=== PATIENT | female | born 1945 | race Caucasian/White ===

== ENCOUNTER 2017-01-12 12:25 | Emergency (ER) | payer MEDICARE ==
[~2017-01-12] VITALS: Ht 170.2 cm; Wt 79.5 kg
[2017-01-12 12:29] VITALS: BP 167/93; PULSE 99; RESP 16; O2SAT 99
[2017-01-12] MEDS ORDERED: IBUP400T22 PO (12:50)
[2017-01-12] MEDS ORDERED: B12/1TAB PO (12:50)
[2017-01-12] MEDS ORDERED: MULT1CAP33 PO (12:50)
--- NOTE | 2017-01-12 13:28 | ED.REPORT ---
HPI-GI Bleed Date of Service Jan 12, 2017 ED Provider: Dr. Erik Mckeon 71 year old female with a PMHx hemorrhoids who presents with bright red blood per rectum. She has had hemorrhoids present for 2 weeks but just started bleeding in the last week. Over the past week she has developed dizziness with standing, fatigued, rectal pain and bloody stools. She has had 2 BM per day which are bloody liquid. She has also had some bright red bleeding between BM' s. Pt denies abd pain, black/tarry stools, fevers, chills and weight loss. Nursing Notes Stated Complaint: HAD HEMORRHOIDS/ BLEEDING BUTTOCKS Chief Complaint: Female Abdominal Pain Nursing Notes Reviewed: Yes Allergies: Coded Allergies: Penicillins (Verified Allergy, Severe, Anaphylaxis, 01/12/17) aspirin (Verified Adverse Reaction, Severe, Hallucinations, 01/12/17) oxycodone (Verified Adverse Reaction, Severe, Hallucinations, 01/12/17) Miscellaneous Medications B12/Levomefolate Calcium/B-6 (Foltx Tablet) 1 Each Tablet 1 EACH PO Ibuprofen (Ibuprofen) 400 Mg Tablet 400 MG PO Multivitamin (Multivitamins) 1 Each Capsule 1 EACH PO General Time Seen by Provider: 13:27 Chief Complaint Chief Complaint: Hemorrhoid Bleeding Severity: Moderate Hx Obtained From: Patient Arrived By: Walk-in Onset Occurred: More than a week ago... (2 weeks) Symptom Duration: Since onset Location: : Rectum Severity: Current: Moderate Associated with: Reports: Rectal pain, Denies: Shortness of breath Exacerbated by: Bowel movement Past Medical History Past Medical History Hemorrhoids Past Surgical History Jaw Reports: Appendectomy, Tonsillectomy Smoking History Never Smoker Social History Alcohol Use: 1-3 per week Drug Use: Denies drug use Other Social History: Lives alone Ambulatory Status Independent Review of Systems Basic Review of Systems Eyes: Vision NL, No discharge Psychiatric: Normal thought content Constitutional: Reports: Fatigue, Denies: Chills, Fever Respiratory: Denies: Shortness of breath Cardiovascular: Denies: Chest pain GI: Reports: Diarrhea, Hematochezia, Rectal pain, Denies: Abdominal pain, Vomiting Neurologic: Reports: Dizziness, Lightheaded, Denies: Change LOC, Headache Complete sys rev & neg: except as marked. Physical Exam Initial Vital Signs Vital Signs (First) Date Time Temp Pulse Resp B/P Pulse Ox O2 Delivery O2 Flow Rate FiO2 01/12/17 12:29 36.0 99 16 167/93 99 Initial VS: Reviewed Head / Eyes: Atraumatic, Normocephalic, PERRL ENT: Mucous membranes moist, Conjunctiva normal, No scleral icterus Neck: Supple, Full range of motion Extremities: Vascular intact, Neuro intact Skin: Warm, Dry, No cyanosis Neurologic: Alert, Oriented, Nonfocal Psychiatric: Mood/affect normal, Behavior normal, Normal thought content General/Constitutional: Awake, Alert Respiratory / Chest: Breath sounds NL, Breath sounds = bilat, No respiratory distress, No rales, No rhonchi, No wheezing Cardiovascular: Heart rate NL, Regular rhythm, Heart sounds NL, No murmurs, Cap refill not delayed, Peripheral circulation NL Abdomen: Soft, Non-tender, No guarding, No rebound, BS normoactive Rectal for Blood: Positive: Blood - occult heme + Rectal exam per medical student- Normal external exam, palpable firm lumps internally. Brown stool. No obvious external hemorrhoids. Interpretation & Diagnostics Lab Results Interpretation Result Diagram: 01/12/17 1405 01/12/17 1405 Test 01/12/17 14:05 White Blood Count 7.6th/mm3 (3.8-10.1) Red Blood Count 3.73mil/mm3 (3.90-5.20) Hemoglobin 11.3g/dL (12.0-15.6) Hematocrit 33.6% (35.0-46.0) Mean Corpuscular Volume 90.1fL (81-100) Mean Corpuscular Hemoglobin 30.3pg (27.0-35.0) Mean Corpuscular Hemoglobin Concent 33.6% (32.0-37.0) Red Cell Distribution Width 12.7% (12.3-15.4) Platelet Count 369bil/L (150-400) Neutrophils (%) (Auto) 76.1% (40-74) Lymphocytes (%) (Auto) 13.5% (14-46) Monocytes (%) (Auto) 7.6% (4-12) Eosinophils (%) (Auto) 2.2% (0-5) Basophils (%) (Auto) 0.3% (0-3) Sodium Level 140mEq/L (134-144) Potassium Level 3.3mEq/L (3.5-5.2) Chloride Level 102mEq/L (97-108) Carbon Dioxide Level 20mmol/L (18-29) Blood Urea Nitrogen 15mg/dL (8-27) Creatinine 1.04mg/dL (0.57-1.00) Estimat Glomerular Filtration Rate 74mL/min (>59) Glucose Level 103mg/dL (60-99) Calcium Level 9.7mg/dL (8.5-10.1) Total Bilirubin 0.4mg/dL (0.0-1.2) Aspartate Amino Transf (AST/SGOT) 18U/L (0-50) Alanine Aminotransferase (ALT/SGPT) 8U/L (0-32) Alkaline Phosphatase 67U/L (25-165) Total Protein 7.1g/dL (6.4-8.4) Albumin 3.6g/dL (3.4-5.0) Hold Yang Top Tube Received (Received) General Lab Results Interp 1: Labs reviewed ECG Interpretation ECG Interpretation: Inferior infarct, old Time: 13:42 Interpreted by: ED physician Normal ECG Interpretation: Normal rate (79), Normal sinus rhythm Re-Eval/Medical Decision Re-Evaluation/Progress : Time of Eval: 14:43 Re-Evaluation/Progress Note: Pt updated of labs and ECG. Discussed plan for discharge and follow up. All questions addressed. Counseled Regarding: Diagnosis, Lab results, Need for follow-up, When/why to return to ED Discharge & Departure Impression: Primary Impression: Rectal bleeding Disposition: Home Discharge Condition All VS Reviewed: Yes Condition: Stable Patient Instructions: Rectal Bleeding (ED) Additional Instructions: Your workup today was reassuring. The bleeding is most likely from an internal hemorrhoid. You will need further evaluation for this problem. You also have an appointment . Return to the ER for severe dizziness, fainting or any other concerning symptoms. Referrals: Keiko Roy MD, Kieran Lazar Attestation Portions of this note were transcribed by Mayra Vergara. I, (Dr. Erik Mckeon) personally performed the history, physical exam and medical decision-making; I reviewed and confirmed the accuracy of the information in the transcribed note. Signed by: Mayra Vergara. Cady, 01/12/2017, 3836 copies to: Keiko Roy MD; Kieran Huang MD, Kirk H MD Jan 12, 2017 13:28 Mayra Vergara Jan 12, 2017 13:51 Mayra Vergara Jan 12, 2017 13:51
[2017-01-12 14:20] LABS: BASOPHILS % (AUTO) 0.3 % (0-3); EOSINOPHILS % (AUTO) 2.2 % (0-5); MONOCYTES % (AUTO) 7.6 % (4-12); Mean Corpuscular Hemoglobin 30.3 pg (27.0-35.0); Mean Corpuscular Volume 90.1 fL (81-100); NEUTROPHILS % (AUTO) 76.1 % (40-74); Platelet Count 369 bil/L (150-400)
[2017-01-18] MEDS ORDERED: ACET325T51 PO (15:55)
[2017-01-20] MEDS ORDERED: MULT-1018 PO (16:49)
[2017-01-20] MEDS ORDERED: IBUP100T7 PO (16:49)
[2017-01-20] MEDS ORDERED: MIRT15TA6 PO (16:49)
[2017-01-29] MEDS ORDERED: PROM12.510 PO (16:13)
[2017-01-29] MEDS ORDERED: ONDA-54 PO (16:13)
[2017-02-09] MEDS ORDERED: Fentanyl TOPICAL (10:26)
[2017-03-25] MEDS ORDERED: LACT-38 PO (08:37)
== END 2017-01-12 15:14 | disposition home or self-care (01) ==
LOC: SED 12:25
DX: K62.5 Hemorrhage of anus and rectum (principal); Z88.0 Allergy status to penicillin; Z88.5 Allergy status to narcotic agent; Z88.8 Allergy status to other drugs, medicaments and biological substances

== ENCOUNTER 2017-01-13 11:30 | Emergency (ER) | payer MEDICARE ==
[2017-01-13 11:30] VITALS: BP 159/62; PULSE 74; RESP 14; O2SAT 99
[~2017-01-13 11:30] MED LIST: B12/1TAB PO; IBUP400T22 PO; MULT1CAP33 PO
[2017-01-13 11:51] VITALS: BP 152/61; PULSE 73
[2017-01-13 11:52] VITALS: BP 137/62; PULSE 85
--- NOTE | 2017-01-13 12:13 | ED.REPORT ---
HPI-General Illness Date of Service Jan 13, 2017 ED Provider: Ronan Keys Miguel DO 71 year old female with a PMHx of hemorrhoids who presents to the ER via EMS due to a near syncopal episode this AM. Pt has had hemorrhoids present for 2 weeks but they just started bleeding in the last week. She has used preparation H with little relief. Over the past week she has developed dizziness with standing, fatigue, rectal pain/pressure and blood streaked stools. She has had 2 BM per day which are described as a watery brown stool. Pt's appetite has decreased due to the fact that she has a bowel movement shortly after eating and a strong urger to defecate. She has also had some bright red bleeding between BM's and bright red blood with wiping. This morning the patient went to stand, became lightheaded, weak and had black surrounding her vision. Patient was able to sit down without falling. Pt had no head injury. Pt denies abd pain , black/tarry stools, fevers, chills, weight loss, numbness and focal weakness. Nursing Notes Stated Complaint: POSSIBLE GI BLEED Chief Complaint: General Complaint Nursing Notes Reviewed: Yes Allergies: Coded Allergies: Penicillins (Verified Allergy, Severe, Anaphylaxis, 01/12/17) oxycodone (Verified Adverse Reaction, Severe, Hallucinations, 01/12/17) Miscellaneous Medications B12/Levomefolate Calcium/B-6 (Foltx Tablet) 1 Each Tablet 1 EACH PO Ibuprofen (Ibuprofen) 400 Mg Tablet 400 MG PO Multivitamin (Multivitamins) 1 Each Capsule 1 EACH PO General Time Seen by MD: 12:09 Chief Complaint Other (Near syncope) Hx Obtained From: Patient, EMS Arrived By: Ambulance Sudden in Onset?: No Onset Occurred: More than a week ago... (2 weeks) Symptom Duration: Since onset Quality: Painful (rectum), Pressure (rectum) Radiation: : Does not radiate Severity: Current: Moderate Associated with: Denies: Shortness of breath, Vomiting Exacerbated by: Standing up Past Medical History Past Medical History Hemorrhoids Past Surgical History Jaw Reports: Appendectomy, Tonsillectomy Smoking History Never Smoker Social History Alcohol Use: 1-3 per week Drug Use: Denies drug use Other Social History: Lives alone Ambulatory Status Independent Review of Systems Full Review of Systems Constitutional: Denies: Chills, Fever Eyes: Reports: Visual loss bilateral ("black at the sides of vision") Respiratory: Denies: Shortness of breath Cardiovascular: Denies: Chest pain GI: Reports: Bloody/tarry stool, Diarrhea, Hematochezia, Rectal pain, Denies: Abdominal pain, Hematemesis, Melena, Nausea, Vomiting Female: Denies: Dysuria, Flank pain Musculoskeletal: Denies: Back pain, Extremity pain Skin: Denies Diaphoresis, Denies Rash Neurologic: Reports: Lightheaded, Denies: Change LOC, Focal weakness, Numbness, Syncope Complete sys rev & neg: except as marked. Physical Exam Vital Signs Vital Signs Date Time Temp Pulse Resp B/P Pulse Ox O2 Delivery O2 Flow Rate FiO2 01/13/17 15:25 72 14 155/66 99 Room Air 01/13/17 14:25 75 16 160/65 98 Room Air 01/13/17 11:52 85 137/62 01/13/17 11:51 73 152/61 01/13/17 11:30 36.9 74 14 159/62 99 Room Air Initial VS: Reviewed General/Constitutional: Well-developed, Well-nourished Head / Eyes: Atraumatic, Normocephalic, PERRL ENT: Mucous membranes moist, Conjunctiva normal, No scleral icterus Neck: Supple, Full range of motion Respiratory: Breath sounds normal, Clear to auscultation, No respiratory distress Abdomen / GI: Soft, Non-tender, No distention Extremities: Vascular intact, Neuro intact, No swelling, No tenderness Skin: Warm, Dry, No cyanosis Neurologic: Alert, Oriented, Nonfocal Psychiatric: Mood/affect normal, Behavior normal, Normal thought content Cardiovascular: Heart rate NL, Regular rhythm Heart Sounds / Murmur: Positive: Systolic murmur present.. ( R upper sternal border /6) Interpretation & Diagnostics Lab Results Interpretation Result Diagram: 01/13/17 1330 01/13/17 1201 Test 01/13/17 12:01 01/13/17 13:30 White Blood Count 6.7th/mm3 (3.8-10.1) Red Blood Count 3.60mil/mm3 (3.90-5.20) Mean Corpuscular Volume 91.7fL (81-100) Mean Corpuscular Hemoglobin 30.0pg (27.0-35.0) Mean Corpuscular Hemoglobin Concent 32.7% (32.0-37.0) Red Cell Distribution Width 12.9% (12.3-15.4) Platelet Count 354bil/L (150-400) Neutrophils (%) (Auto) 74.0% (40-74) Lymphocytes (%) (Auto) 14.0% (14-46) Monocytes (%) (Auto) 8.3% (4-12) Eosinophils (%) (Auto) 3.3% (0-5) Basophils (%) (Auto) 0.3% (0-3) Prothrombin Time 11.2sec (8.1-12.5) Prothromb Time International Ratio 1.05ratio Hold Blue Top Tube Received (Received) Sodium Level 140mEq/L (134-144) Potassium Level 3.6mEq/L (3.5-5.2) Chloride Level 102mEq/L (97-108) Carbon Dioxide Level 18mmol/L (18-29) Blood Urea Nitrogen 14mg/dL (8-27) Creatinine 1.05mg/dL (0.57-1.00) Estimat Glomerular Filtration Rate 74mL/min (>59) Glucose Level 84mg/dL (60-99) Calcium Level 9.4mg/dL (8.5-10.1) Total Bilirubin 0.5mg/dL (0.0-1.2) Aspartate Amino Transf (AST/SGOT) 18U/L (0-50) Alanine Aminotransferase (ALT/SGPT) 6U/L (0-32) Alkaline Phosphatase 64U/L (25-165) Troponin T < 0.010ug/L (0.0-0.011) Total Protein 6.3g/dL (6.4-8.4) Albumin 3.6g/dL (3.4-5.0) Thyroid Stimulating Hormone (TSH) 3.230uIU/mL (0.450-4.500) Hold Yang Top Tube Received (Received) Hemoglobin 10.1g/dL (12.0-15.6) Hematocrit 30.1% (35.0-46.0) General Lab Results Interp 1: Labs reviewed ECG Interpretation ECG Interpretation: Inferior q waves, abnormal R wave progression Time: 12:05 Interpreted by: ED physician Normal ECG Interpretation: Normal rate (71), Normal sinus rhythm Re-Eval/Medical Decision Med Decision/Clinical Course Reportedly feeling near syncopal, her hemoglobin and hematocrit are stable, after a liter of fluid she is feeling better, no obvious life-threatening pathology is found, it seems that she does not have regular close follow-up, GI was contacted who will help to coordinate outpatient follow-up. Overall it is deemed that she is stable. Strict return and follow-up precautions are given. Time of Eval: 13:45 Re-Evaluation/Progress Note: Pt passed road test. Time of Eval: 14:45 Re-Evaluation/Progress Note: Pt has no hx contipation. 1 soft stool per day. Has not had a probem with chronic constipation. Discussed plan for discharge and follow up. All questions addressed. 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 Mineral oil then 2 fleet enemas. Counseled Regarding: Diagnosis, Lab results, Need for follow-up, When/why to return to ED Discharge & Departure Primary Impression: Syncope, near Additional Impression: Hemorrhoids Hemorrhoid type: unspecified Qualified Code: K64.9 - Unspecified hemorrhoids Disposition: Home Discharge Condition All VS Reviewed: Yes Condition: Improved Overall your workup is reassuring. Contact the GI clinic today for a follow-up appointment. Additionally stay hydrated, be sure to eat regularly. Use Preparation H suppositories up to 4 times a day. Follow-up with a primary care doctor for a full physical including further delineation of your mild murmur. Returnto the ER for recurrent episodes of passing out, severe lethargy, or other concerns. Referrals: Keiko Roy MD, Donald E MD Scribe Attestation Portions of this note were transcribed by Mayra Vergara. I, (Dr. Ronan Keys ) personally performed the history, physical exam and medical decision-making; I reviewed and confirmed the accuracy of the information in the transcribed note. Signed by: Mayra Vergara. Cady, 01/13/2017, 15:17 copies to: Keiko Roy MD; Kieran Huang MD, Timothy S DO Jan 13, 2017 12:13 Mayra Vergara Jan 13, 2017 12:54
[2017-01-13 12:22] LABS: BASOPHILS % (AUTO) 0.3 % (0-3); EOSINOPHILS % (AUTO) 3.3 % (0-5); MONOCYTES % (AUTO) 8.3 % (4-12); Mean Corpuscular Volume 91.7 fL (81-100); Platelet Count 354 bil/L (150-400)
[2017-01-13 12:44] LABS: INR 1.05 ratio
[2017-01-13] MEDS ORDERED: 0.9% Sodium Chloride 1,000 ML IV ONE (12:45)
[2017-01-13 13:17] LABS: TROPONIN T < 0.010 ug/L (0.0-0.011)
[2017-01-13 14:25] VITALS: BP 160/65; PULSE 75; RESP 16; O2SAT 98
[2017-01-13 14:32] VITALS: BP 124/58; PULSE 70; RESP 18; O2SAT 93
[2017-01-13 15:25] VITALS: BP 155/66; PULSE 72; RESP 14; O2SAT 99
[2017-01-18] MEDS ORDERED: ACET325T51 PO (15:55)
[2017-01-20] MEDS ORDERED: IBUP100T7 PO (16:49)
[2017-01-20] MEDS ORDERED: MULT-1018 PO (16:49)
[2017-01-20] MEDS ORDERED: MIRT15TA6 PO (16:49)
[2017-01-29] MEDS ORDERED: PROM12.510 PO (16:13)
[2017-01-29] MEDS ORDERED: ONDA-54 PO (16:13)
[2017-02-09] MEDS ORDERED: Fentanyl TOPICAL (10:26)
[2017-03-25] MEDS ORDERED: LACT-38 PO (08:37)
== END 2017-01-13 15:26 | disposition home or self-care (01) ==
LOC: SED 11:30
DX: R55 Syncope and collapse (principal); K64.9 Unspecified hemorrhoids; R53.83 Other fatigue; R53.1 Weakness; Z88.0 Allergy status to penicillin; Z88.5 Allergy status to narcotic agent

== ENCOUNTER 2017-01-16 12:13 | Emergency (ER) | payer MEDICARE ==
[~2017-01-16] VITALS: Ht 170.2 cm; Wt 67.7 kg
[2017-01-16 12:16] VITALS: BP 141/88; PULSE 91; RESP 14; O2SAT 100
--- NOTE | 2017-01-16 12:31 | ED.REPORT ---
HPI-General Illness Date of Service Jan 16, 2017 ED Provider: Erik Mckeon MD A 71 year old female with a history of appendectomy presents to the ED complaining of dizziness and rectal bleeding. The pt has been noticing bright red blood from her rectum for the last several weeks, which she suspects is from hemorrhoids. This is accompanied by rectal "pressure." She also admits to dizziness, nausea, chills and lightheadedness but denies vomiting, fever, chest pain, abdominal pain, dysuria, or syncope. She has been seen twice this week for similar symptoms, but the bleeding has increased over the course of the week. Her second visit was associated with an episode of near syncope. The pt was seen by GI two days ago and has a follow up appointment for colonoscopy in three weeks. She has not seen her primary care physician regularly for several years. Nursing Notes Stated Complaint: DIZZINESS Chief Complaint: General Complaint Nursing Notes Reviewed: Yes Allergies: Coded Allergies: Penicillins (Verified Allergy, Severe, Anaphylaxis, 01/12/17) oxycodone (Verified Adverse Reaction, Severe, Hallucinations, 01/12/17) Miscellaneous Medications B12/Levomefolate Calcium/B-6 (Foltx Tablet) 1 Each Tablet 1 EACH PO Ibuprofen (Ibuprofen) 400 Mg Tablet 400 MG PO Multivitamin (Multivitamins) 1 Each Capsule 1 EACH PO General Time Seen by MD: 12:30 Chief Complaint Dizziness Hx Obtained From: Patient Arrived By: Walk-in Sudden in Onset?: No Onset Occurred: More than a week ago... Symptom Duration: Since onset Recent Healthcare: No recent hospitalization, Recent doctor visit Similar Sx Previous: No Past Medical History Past Medical History Hemorrhoids Past Surgical History Jaw Reports: Appendectomy, Tonsillectomy Smoking History Never Smoker Social History Alcohol Use: 1-3 per week Drug Use: Denies drug use Other Social History: Lives alone Ambulatory Status Independent Review of Systems rectal bleeding Full Review of Systems Constitutional: Reports: Chills, Denies: Fever Cardiovascular: Denies: Chest pain GI: Reports: Nausea, Denies: Abdominal pain, Vomiting Female: Denies: Dysuria Musculoskeletal: Denies: Back pain, Neck pain Skin: Denies Rash Neurologic: Reports: Dizziness, Lightheaded, Denies: Syncope Complete sys rev & neg: except as marked. Physical Exam Vital Signs Vital Signs Date Time Temp Pulse Resp B/P Pulse Ox O2 Delivery O2 Flow Rate FiO2 01/16/17 14:30 82 13 151/85 99 Room Air 01/16/17 12:16 36.8 91 14 141/88 100 Room Air Initial VS: Reviewed General/Constitutional: Awake, Alert Head / Eyes: Atraumatic, Normocephalic, PERRL, EOMI ENT: Atraumatic, Airway patent, Mucous membranes moist Neck: Atraumatic, Supple, Full range of motion Respiratory / Chest: Atraumatic, Breath sounds NL, Breath sounds = bilat, No respiratory distress Cardiovascular: Heart rate NL, Regular rhythm, Heart sounds NL Abdomen: Atraumatic, Soft, Non-tender Back: Atraumatic, Full range of motion Upper Extremities Upper Extremity / MS: Atraumatic, Full range of motion Lower Extremity / Pelvis / MS: Atraumatic, Full range of motion Skin: Atraumatic, Color NL, No rash, Warm, Dry Rectum / Perineum: Atraumatic brown stool, guaiac positive large rectal mass Neurologic: Oriented X3, Speech NL, No motor deficits, No sensory deficits Psychiatric: Affect NL, Mood NL Interpretation & Diagnostics Lab Results Interpretation Result Diagram: 01/16/17 1308 01/16/17 1308 Test 01/16/17 13:08 White Blood Count 7.4th/mm3 (3.8-10.1) Red Blood Count 3.66mil/mm3 (3.90-5.20) Hemoglobin 11.1g/dL (12.0-15.6) Hematocrit 32.7% (35.0-46.0) Mean Corpuscular Volume 89.3fL (81-100) Mean Corpuscular Hemoglobin 30.3pg (27.0-35.0) Mean Corpuscular Hemoglobin Concent 33.9% (32.0-37.0) Red Cell Distribution Width 12.9% (12.3-15.4) Platelet Count 376bil/L (150-400) Neutrophils (%) (Auto) 73.9% (40-74) Lymphocytes (%) (Auto) 15.2% (14-46) Monocytes (%) (Auto) 8.4% (4-12) Eosinophils (%) (Auto) 2.3% (0-5) Basophils (%) (Auto) 0.1% (0-3) Sodium Level 140mEq/L (134-144) Potassium Level 3.1mEq/L (3.5-5.2) Chloride Level 101mEq/L (97-108) Carbon Dioxide Level 19mmol/L (18-29) Blood Urea Nitrogen 11mg/dL (8-27) Creatinine 0.81mg/dL (0.57-1.00) Estimat Glomerular Filtration Rate 99mL/min (>59) Glucose Level 85mg/dL (60-99) Calcium Level 9.6mg/dL (8.5-10.1) Total Bilirubin 0.6mg/dL (0.0-1.2) Aspartate Amino Transf (AST/SGOT) 19U/L (0-50) Alanine Aminotransferase (ALT/SGPT) 8U/L (0-32) Alkaline Phosphatase 67U/L (25-165) Total Protein 6.6g/dL (6.4-8.4) Albumin 3.4g/dL (3.4-5.0) Re-Eval/Medical Decision Source of Hx: Old records Time of Eval: 12:48 Patient Status: Condition improved Re-Evaluation/Progress Note: Pt rechecked, who is stable. She is informed of her rectal exam findings and need for a CT scan. Consultation : Referral / Consult Name: Dakota Dominguez MD Call Returned at: 14:37 Note: Spoke with Dr. Dominguez, oncology, regarding pt's case. Dr. Dominguez recommends chest CT and close follow up on Wednesday. Counseled Regarding: Diagnosis, Lab results, Need for follow-up, When/why to return to ED Discharge & Departure Primary Impression: Rectal mass Disposition: Home Discharge Condition All VS Reviewed: Yes Condition: Stable Additional Instructions: There is a mass of abnormal tissue in your rectum. I have made arrangements for you to be seen by my friend Dakota Dominguez MD, who is an oncologist, on January 18, at 4 PM. Please arrive at the clinic at 3 PM so that you can fill out all the paperwork that they need you to do. I recommend a mild diet and plenty of oral fluid over the next few days. Do not consult the Internet regarding this condition. This will be a source of inaccurate information and will be very difficult to know what information applies to you. Referrals: [facility] Scribe Attestation Portions of this note were transcribed by Dhruv Mendez. I, Dr. Mckeon personally performed the history, physical exam and medical decision-making; I reviewed and confirmed the accuracy of the information in the transcribed note. Signed by: Cady Davidson, 01/16/17 and 1256. copies to: [facility] Erik Mckeon MD Jan 16, 2017 12:31 DHRUV MENDEZ Jan 16, 2017 12:39
[2017-01-16] MEDS ORDERED: Iohexol 300 mg/mL 30 mL Inj PO ONE (13:00)
[2017-01-16 13:28] LABS: BASOPHILS % (AUTO) 0.1 % (0-3); EOSINOPHILS % (AUTO) 2.3 % (0-5); MONOCYTES % (AUTO) 8.4 % (4-12); Mean Corpuscular Hemoglobin 30.3 pg (27.0-35.0); Mean Corpuscular Volume 89.3 fL (81-100); NEUTROPHILS % (AUTO) 73.9 % (40-74); Platelet Count 376 bil/L (150-400)
[2017-01-16 14:30] VITALS: BP 151/85; PULSE 82; RESP 13; O2SAT 99
[2017-01-16 15:45] VITALS: BP 190/73; PULSE 94; RESP 12; O2SAT 100
[2017-01-16 16:17] VITALS: BP 165/91; PULSE 90; RESP 13; O2SAT 98
--- NOTE | 2017-01-16 16:35 | DRSVH ---
PROCEDURE: CT CHEST, ABDOMEN AND PELVIS [facility] CONTRAST ([id number]) INDICATIONS: rectal mass TECHNIQUE: After the administration of oral and intravenous contrast, 5 mm thick sections acquired from the lung apices to the symphysis. 5 mm coronal and sagittal reformats were performed, with additional 7 mm c oronal MIP reformats through the lungs. For radiation dose reduction, the following was used: autom ated exposure control, adjustment of mA and/or kV according to patient size. COMPARISON: None. FINDINGS: Image quality: Excellent. CHEST: Lungs and pleura: No acute airspace opacities. Calcified density probably granuloma in the left midl heide field. No pleural effusions or pneumothorax. Central and peripheral airways appear patent and n ormal in caliber. Mediastinum: Heart size is normal. No pericardial effusion. No mediastinal or hilar adenopathy by size criteria. Thoracic aorta and central pulmonary arteries are normal in size. Esophagus is anoop l in caliber. No hiatal hernia. Chest wall: No axillary or supraclavicular adenopathy by size criteria. Thyroid gland is within nor mal limits.. There is a 15 mm in greatest dimension density in the right breast upper-outer quadrant of unknown significance. ABDOMEN: Solid organs: Liver and spleen are normal in size and enhancement. Gallbladder multiple low-density gallstones are present in the gallbladder. The largest measures approximately 3 cm.. Biliary system is non dilated. Pancreas enhances normally. No adrenal nodules. Kidneys demonstrate normal size a nd enhancement, without hydronephrosis. Peritoneum and bowel: Until the rectosigmoid area bowel loops are considered normal. In the rectum t here is thought to be a mass that is irregular and measures approximately 4.7 x 3.4 by approximately 5.7 cm in length in the postero-left lateral aspect of the rectum. More proximal to this in the colon there is some wall irregularity and extension cannot be excluded for instance on series 2 image 90 a nd a distal sigmoid the sigmoid rectal junction. Just to the right of this area is what is thought to be a pathologic lymph node measuring 3 x 2.5 cm. In just inferior and posterior to the rectum has a structure thought to be a pathologic lymph node measuring 2.1 x 1.5 cm. Just to the right of the rect osigmoid is a questionable area of mass measuring 4.1 x 4.6 cm. Along the rostral left side of the bl adder is a 1 cm pathologic lymph node seen on series 2 image 99. There is a pathologic soft tissue ma ss probably lymph node just in the right inguinal area. Nodes and vessels: No retroperitoneal or mesenteric adenopathy by size criteria. Aorta and inferior vena cava are normal in size. Miscellaneous: No ventral hernias. PELVIS: Genitourinary: Bladder wall thickness is normal. There is a fibroid uterus present. Miscellaneous: No inguinal hernias or adenopathy. Bones: No suspicious bony lesions. Mild wedging deformity of L1 with placement of a Schmorl's node d efect superiorly in the vertebral body. T7-T6 paravertebral sclerosis is present. No vertebral body compression fractures. IMPRESSION: 1. Large mass in the rectum with mild thought to be either masslike extensions or more likely adjace nt pathologic lymph nodes in the sigmoid rectal region of the pelvis as well as the right inguinal ar ea and near the right dome of the bladder. There are abnormal lymph nodes in the region of the extra iliacs and the left internal iliac vessels. 2. No periaortic adenopathy is seen. No metastatic disease to liver or lungs Dictated by: Sriram Adams M.D. on 01/16/2017 at 16:14 Approved by: Sriram Adams M.D. on 01/16/2017 at 16:34
[2017-01-16 16:43] VITALS: BP 152/79; PULSE 88; O2SAT 97
[2017-01-18] MEDS ORDERED: ACET325T51 PO (15:55)
[2017-01-20] MEDS ORDERED: MULT-1018 PO (16:49)
[2017-01-20] MEDS ORDERED: MIRT15TA6 PO (16:49)
[2017-01-20] MEDS ORDERED: IBUP100T7 PO (16:49)
[2017-01-29] MEDS ORDERED: ONDA-54 PO (16:13)
[2017-01-29] MEDS ORDERED: PROM12.510 PO (16:13)
[2017-02-09] MEDS ORDERED: Fentanyl TOPICAL (10:26)
[2017-03-25] MEDS ORDERED: LACT-38 PO (08:37)
== END 2017-01-16 16:44 | disposition home or self-care (01) ==
LOC: SED 12:13
DX: K62.89 Other specified diseases of anus and rectum (principal); Z88.0 Allergy status to penicillin; Z88.5 Allergy status to narcotic agent
CPT/HCPCS: 36415; 71260; 74177; 80053; 82378; 85025; 99284; Q9967

== ENCOUNTER 2017-01-21 14:55 | Day surgery (SDC) | payer MEDICARE ==
[~2017-01-21] VITALS: Ht 170.2 cm; Wt 65.2 kg
[2017-01-21] VITALS (8 sets, daily range): BP systolic 143–169; BP diastolic 72–89; PULSE 75–89; RESP 15–16; O2SAT 98–100
[~2017-01-21 14:55] MED LIST changes: +ACET325T51 PO; +IBUP100T7 PO; +MIRT15TA6 PO; +MULT-1018 PO; +Vancomycin Inj 1,000 MG in IV Premix 1 EACH IV SCH
[2017-01-21] MEDS ORDERED: Propofol 10,000 mCg/mL 20 mL Inj ONE (14:56)
[2017-01-21] MEDS ORDERED: Neostigmine 1 mg/mL 10 mL Inj ONE (14:56)
[2017-01-21] MEDS ORDERED: Dexamethasone 4 mg/mL Inj ONE (14:56)
[2017-01-21] MEDS ORDERED: MetoCLOpramide 5 mg/mL 2 mL Inj ONE (14:56)
[2017-01-21] MEDS ORDERED: Ondansetron 2 mg/mL 2 mL Inj ONE (14:56)
[2017-01-21] MEDS ORDERED: Lactated Ringer's 1,000 ML IV ONE (15:37)
[2017-01-21] MEDS ORDERED: Lactated Ringer's 1,000 ML IV SCH (16:21)
[2017-01-21] MEDS ORDERED: Lactated Ringer's 500 ML IV PRN (16:21)
--- NOTE | 2017-01-21 16:21 | PCM.HPANE ---
Patient Data Surgeon Admitting Provider: Attending Provider:Chavo Roberts MD Primary Care Physician:Keiko Roy MD Other Provider:[place] Anesthesia Reason for Visit Anal Rectal Neoplasm Ht/WT & BMI Height (Feet): 5 Height (Inches): 7 Weight (Kilograms): 65.2 Body Mass Index 22.00 Allergies Coded Allergies: Penicillins (Verified Allergy, Severe, Anaphylaxis, 01/12/17) oxycodone (Verified Adverse Reaction, Severe, Hallucinations, 01/12/17) Past Anesthesia History Anesthesia History: Denies:: Abnormal Airway, Anesthesia Reactions, Difficult Intubation, Fam Anesthesia Reaction Diabetes History Hx Diabetes?: No MRSA MRSA: No Medications Home Meds Incl Beta Walter: No Reported Medications Mirtazapine 15 Mg [id number] Mg PO HS Ref 0 01/20/17 Multivitamin (Multi Vitamin Daily)1 Each Tablet1 Each PO DAILY 30 Days Ref 0 01/20/17 Ibuprofen 100 Mg [id number] Mg PO QID PRN For Pain Ref 0 01/20/17 Acetaminophen 325 Mg [id number] Mg PO Q4H PRN For Fever Ref 0 01/18/17 Discontinued Reported Medications Ibuprofen 400 Mg [id number] Mg PO For Pain Ref 0 01/12/17 B12/Levomefolate Calcium/B-6 (Foltx Tablet)1 Each Tablet1 Each PO 01/12/17 Multivitamin (Multivitamins)1 Each Capsule1 Each PO 01/12/17 History History of ENT Problems?: Yes HEENT History: Denies:: Abnormal Airway Cataracts Difficult Intubation Dysphagia Glaucoma Hearing Problem Sinus Problem TMJ Denture Type: Full- Upper Hx of Heart Problems?: Yes Cardiovascular History: Positive for:: Heart Murmur (from rheumatic fever as child, heard occasionally) Rheumatic Fever (as child) Denies:: Abdominal Aortic Aneurism Atrial Fibrillation Cardiac Surgery Chest Pain Congestive Heart Failure Hypertension Hx of Respiratory Problem?: No Respiratory History: Denies:: Asthma COPD Emphysema Oxygen Administration Pneumonia Tuberculosis Use of C-PAP Machine Use of Inhalers / NEBS Hx Neurologic Problems?: No Neurological History: Denies:: Alzheimer's Disease CVA Dementia Dizziness Headaches Multiple Sclerosis Parkinson's Disease Seizures TIA Hx of GI Problems?: Yes Gastrointestinal History: Positive for:: Gall Bladder Disease (gallstones on CT- asymptomatic) Rectal Bleeding (rectal neoplasm current admission problem) Denies:: Gastroesphageal Reflux Gastrointestinal Bleeding Heartburn Hepatitis Hiatal Hernia Liver Disease Hx of Problems?: No Genitourinary History: Denies:: Kidney Stones Urinary Tract Infection Female Hx: Denies:: Currently Problems with Breasts? Skin History: Denies:: History Skin Disorders? Pressure Ulcers Hx Musculoskeletal Problems?: Yes Musculoskeletal History: Positive for:: Osteoarthritis (hands ) Denies:: Back Injury Fibromyalgia Joint Replacement Myasthenia Gravis Rheumatoid Arthritis Hx of Psycho/Social Problems?: No Psycho Social History: Denies:: Anxiety Hx Depression Hx Surgeries?: Yes (tonsils, appe, maxillo facial correction (bite correction)) Hx Any Other Health Problems?: Yes Other History: Positive for:: Cancer (rectal ) Denies:: Thyroid Disease History Blood Transfusions: Positive for:: Accept Blood Products? Blood Transfusions (probably at time of maxillo facial surgery as teenager) Hx Diabetes: No Hx Alcohol Use: YesAlcoholic Drinks Per Day: one to two drinks weekly, none recentlyHx Substance Use: No Smoking Status: Never Smoker Have You Smoked inLast 12 mo: No Stop/Bang Treated for Sleep Apnea?: No Do You Have a CPAP Machine?: No P-Blood Pressure: treated: No B- Body Mass Index > 35 kg/m2: No A- Age over 50: Yes N- Neck Large Circumference: No G- Gender Male: No SHARIF Risk Assessment: Low Risk, <3 Yes Risk Assessment Category Category 1A: Patient has history of documented sleep apnea, and HAS NOT received any narcotic, sedative or anesthesia administration during this stay. Category 1B: Patient has history of documented sleep apnea, and HAS received any narcotic , sedative or anesthesia administration during this stay Category 2: Patient has SUSPECTED Obstructive Sleep Apnea, and HAS received any narcotic , sedative or anesthesia administration during this stay. Category 3: Patient has SUSPECTED Obstructive Sleep Apnea and HAS NOT received narcotic, sedative or anesthesia administration during this stay. Category 4: Outpatient in Procedural Areas with known sleep apnea or who screen positive for High Risk via the STOP/BANG questionnaire. Exam Exam Vital Signs Vital Signs Date Time Temp Pulse Resp B/P Pulse Ox O2 Delivery O2 Flow Rate FiO2 01/21/17 15:40 36.9 88 16 154/89 99 Room Air General Appearance: Oriented X3 HEENT/AIRWAY: MP 2 Lungs: Normal Air Movement Heart: Regular Rate/Rhythm Meds/Labs/Diagnostics Admission Meds Current Medications Lactated Ringer's (Lr) 1,000 ml @ ud STK-MED ONCE IV Last administered on 01/21t 15:37; Start 01/21/17 at 15:37; Stop 01/21/17 at 15:38; Status DC Plan Impression Patient chart reviewed, patient interviewed and anesthestic plan with risks, benefits, and alternatives discussed, and informed consent obtained. NPO Status: MIDNIGHT ASA Physical Status: ASA2 Mod Systemic Disease Anesthetic Plan: GA Bene/Risks/Altern/Consents: Yes HP Complete Prior to Induction: Yes Carlos Higuera MD Jan 21, 2017 16:21
[2017-01-21] MEDS ORDERED: EPHEDrine Sulfate 50 mg/mL Inj IVPUSH PRN (16:25)
[2017-01-21] MEDS ORDERED: Dexamethasone 4 mg/mL Inj IVPUSH PRN (16:25)
[2017-01-21] MEDS ORDERED: MetoCLOpramide 5 mg/mL 2 mL Inj IVPUSH PRN (16:25)
[2017-01-21] MEDS ORDERED: fentaNYL-PF 50 mCg/mL 2 mL Inj IVPUSH PRN (16:25)
[2017-01-21] MEDS ORDERED: Ondansetron 2 mg/mL 2 mL Inj IVPUSH PRN (16:25)
[2017-01-21] MEDS ORDERED: Phenylephrine 10,000 mCg/mL Inj IVPUSH PRN (16:25)
[2017-01-21] MEDS ORDERED: Vancomycin 1,000mg/200 mL NS IV ONE (16:50)
[2017-01-21] MEDS ORDERED: metroNIDAZOLE 500 mg/100 mL NS Premix IV ONE (16:50)
[2017-01-21] MEDS ORDERED: Sodium Chloride Bacteriostatic 30 mL Inj IVFLUSH ONE (17:09)
[2017-01-21] MEDS ORDERED: Bupivacaine-MPF 0.25% 30 mL Inj INFILTRATE ONE (17:09)
[2017-01-21] MEDS ORDERED: HepLOK Flush 100 unit/mL 5 mL Inj IVFLUSH ONE (17:09)
--- NOTE | 2017-01-21 18:20 | DRSVH ---
PROCEDURE: X-RAY CHEST ONE VIEW, PORTABLE ([id number]) INDICATIONS: port TECHNIQUE: One view of the chest was acquired. COMPARISON: None. FINDINGS: Surgical changes and devices: Left chest port with the tip projecting in the upper SVC Lungs and pleura: No pleural effusions or pneumothorax. Lungs are clear. Mediastinum: Mediastinal contours appear normal. Heart size is normal. Bones and chest wall: No suspicious bony lesions. Overlying soft tissues appear unremarkable. Late ral curvature of the spine IMPRESSION: Left chest port with tip projecting in the upper SVC. No pneumothorax. Dictated by: Arsh Das M.D. on 01/21/2017 at 18:17 Approved by: Arsh Das M.D. on 01/21/2017 at 18:18
--- NOTE | 2017-01-22 02:39 | OP ---
[address] [address] OPERATIVE REPORT PATIENT: SELENA DELEON : 1945 MR#: [id number] ADMIT: 01/21/2017 JOB ID: [id number] DATE OF SURGERY: 01/21/2017 ANESTHESIA: General. PREOPERATIVE DIAGNOSIS(ES): Anorectal malignancy. POSTOPERATIVE DIAGNOSIS(ES): Anorectal malignancy. OPERATIVE PROCEDURE: 1. Port placement using fluoroscopy with interpretation. 2. Rigid proctosigmoidoscopy with biopsy of anorectal mass. SURGEON: Chavo Roberts MD. THERAPEUTIC MASSAGE TECHNICIAN: None. COMPLICATIONS: None. ESTIMATED BLOOD LOSS: Minimal. CONDITION: Satisfactory. SPECIMEN: Anorectal mass biopsy. FINDINGS: Inspection of the anus and vagina demonstrated a large firm mass involving the posterior aspect of the vagina/anterior right aspect of the rectum. This mass extends all the way up to 9 cm from the verge. It seemed that, during the examination, mucin was draining from the mass. INDICATION/SIGNIFICANT HISTORY: The patient is a 71-year-old female who recently presented multiple times with complaint of rectal bleeding. Eventually, a CT scan was performed and digital rectal exam also performed, both demonstrating a large mass in the rectum. She was referred to me, as well as Oncology. Given the questionable malignant nature of this the oncologist requested a Port-A-Cath, as well as tissue biopsy to be performed in the OR. OPERATIVE TECHNIQUE: The patient was taken to the operating room and placed in supine position. General anesthesia was administered and preoperative antibiotics given. The neck and chest were prepped and draped in standard surgical fashion. A procedure pause was performed. The left subclavian vein was accessed with the first pass of the finder needle. A wire was inserted in the vein and position confirmed with fluoroscopy. The wire was seen to course through the heart into the inferior vena cava, confirming it was in the venous system. Local anesthetic was injected and a subcutaneous pocket was created in the left anterior chest. Low-profile Port-A-Cath was secured in place using three 2-0 PDS sutures. The catheter was tunneled up to the wire exit point and inserted into the vein using the Seldinger technique under fluoroscopic visualization. Good final position was confirmed. The port aspirated and flushed nicely. This was locked with heparin. The skin was then closed using 3-0 Vicryl deep dermal, followed by running 4-0 Monocryl. Dermabond was applied. The patient was then placed in lithotomy position. I began with a digital rectal exam. The mass is easily palpable within 1 cm of the anal verge at the anterior and right anterior aspects. Upon bimanual exam, the mass was also easily palpable in the posterior vagina as high as I could palpate. I inspected these using the speculum and could see the mass in the vagina. I then inserted a speculum into the anus. There was a fungating component to the mass and tissue was taken from this and sent for biopsy. I then inserted the rigid proctoscope beyond the mass and slowly withdrew it until I encountered friable tissue. This was at 9 cm. This was then withdrawn and the case concluded. SHAROND
--- NOTE | 2017-01-22 08:40 | DRSVH ---
PROCEDURE: X-RAY SUGICAL FLUORO-VENOUS ACCESS INDICATIONS: . COMPARISON: [facility], CR, XR CHEST 1VW (PORTABLE), 01/21/2017, 17:55. FINDINGS: Exam is limited to to submitted images which demonstrate placement of a left subclavian ch est port with tube tip projected over the mid superior vena cava IMPRESSION: Placement of left subclavian chest port with tube tip projected over the mid superior phan a cava. Dictated by: Fortunato SAUCEDO Interpreted: Makeda Wallace MD on 01/22/2017 at 8:38 Transcribed by: KAYCEE on 01/22/2017 at 8:40 Approved by: Makeda Wallace M.D. on 01/22/2017 at 15:46
--- NOTE | 2017-01-22 17:14 | PATH ---
SURGICAL PATHOLOGY Attending Physician:Chavo Roberts MD CASE STATUS: Signed Out PATIENT NAME: SELENA DELEON PID: [id number] : 1945 DATE COLLECTED:01/21/2017 23:41 SPECIMEN: Anus, Biopsy CLINICAL HISTORY: ANAL RECTAL MASS 1). ANAL RECTAL MASS FINAL DIAGNOSIS: 1.ANAL RECTAL MASS, BIOPSIES: MULTIPLE FRAGMENTS OF TUBULOVILLOUS ADENOMA. NO EVIDENCE OF MALIGNANCY OR HIGH-GRADE DYSPLASIA. ICD10 CODE D12.8 GROSS DESCRIPTION: Received in formalin, labeled with the patient' s name and "anal-rectal mass", is a collection of spongy, hardy-pink tissue fragments measuring 1.5 x 1.0 x 0.4 cm in aggregate. All fragments are totally submitted in one cassette. ([id number]) MICRO DESCRIPTION: See diagnosis. ICD-9 CODES: CPT CODES: 1: 62251 Electronically Signed Out Venus Farr MD [facility] Pathology [facility] [address], [place] [address] Technical component performed at [facility], [facility] [address], [place], [address]
[2017-01-29] MEDS ORDERED: ONDA-54 PO (16:13)
[2017-01-29] MEDS ORDERED: PROM12.510 PO (16:13)
[2017-02-09] MEDS ORDERED: Fentanyl TOPICAL (10:26)
[2017-03-25] MEDS ORDERED: LACT-38 PO (08:37)
== END 2017-01-21 23:59 | disposition home or self-care (01) ==
LOC: SAS 14:55
PROVIDERS: ATTEND General Practice
DX: D12.8 Benign neoplasm of rectum (principal); R15.9 Full incontinence of feces; R63.4 Abnormal weight loss; Z87.891 Personal history of nicotine dependence
CPT/HCPCS: 36561; 45305; 71010; 77001; C1788; J1100; J1642; J2250; J2405; J2710; J2765; J3370; J3490; J7120

== ENCOUNTER 2017-01-26 09:23 | Day surgery (SDC) | payer MEDICARE ==
[~2017-01-26] VITALS: Ht 170.2 cm; Wt 64.6 kg
[2017-01-26] VITALS (7 sets, daily range): BP systolic 152–163; BP diastolic 76–86; PULSE 71–90; RESP 9–16; O2SAT 98–100
--- NOTE | 2017-01-26 06:41 | PCM.HPANE ---
Patient Data Surgeon Admitting Provider: Attending Provider:Chavo Roberts MD Primary Care Physician:Keiko Roy MD Other Provider:[facility] Anest[facility] Reason for Visit Rectal Mass Ht/WT & BMI Height (Feet): 5 Height (Inches): 7 Weight (Kilograms): 65.2 Body Mass Index 22.00 Allergies Coded Allergies: Penicillins (Verified Allergy, Severe, Anaphylaxis, 01/25/17) oxycodone (Verified Adverse Reaction, Severe, Hallucinations, 01/25/17) Past Anesthesia History Anesthesia History: Denies:: Abnormal Airway (S/P MAXILLO-FACIAL (JAW) RPR), Anesthesia Reactions, Difficult Intubation, Fam Anesthesia Reaction, Fam Malignant Hypertherm, Malignant Hyperthermia Diabetes History Hx Diabetes?: No MRSA MRSA: No Medications Reported Medications Mirtazapine 15 Mg Olubfh86 Mg PO HS Ref 0 01/26/17 Multivitamin (Multi Vitamin Daily)1 Each Tablet1 Each PO DAILY 30 Days Ref 0 01/20/17 Ibuprofen 100 Mg Tnpnnj016 Mg PO QID PRN For Pain Ref 0 01/20/17 Acetaminophen 325 Mg Vtqehe446 Mg PO Q4H PRN For Fever Ref 0 01/18/17 Discontinued Reported Medications Mirtazapine 15 Mg Vgmvut35 Mg PO HS Ref 0 01/20/17 History History of ENT Problems?: Yes HEENT History: Denies:: Abnormal Airway (S/P MAXILLO-FACIAL (JAW) RPR) Cataracts Difficult Intubation Dysphagia Hearing Problem Sinus Problem TMJ Other HEENT Pertinent History: S/P TONSILLECTOMY Hx of Heart Problems?: Yes Cardiovascular History: Positive for:: Heart Murmur (from rheumatic fever as child, heard occasionally) Rheumatic Fever (as child) Denies:: Abdominal Aortic Aneurism Atrial Fibrillation Cardiac Surgery Chest Pain Congestive Heart Failure Hypertension Irregular Heartbeat (SYNCOPE 01/21/2017) Hx of Respiratory Problem?: Yes Respiratory History: Positive for:: Pneumonia (HX PNEUMONIA & BRONCHITIS) Denies:: Asthma COPD Emphysema Oxygen Administration Tuberculosis Use of C-PAP Machine Hx Neurologic Problems?: No Neurological History: Positive for:: Dizziness (SYNCOPE 01/21/2017) Denies:: Alzheimer's Disease CVA Dementia Headaches Multiple Sclerosis Parkinson's Disease Seizures Hx of GI Problems?: Yes Gastrointestinal History: Positive for:: Gall Bladder Disease (STONES SEEN ON CT-ASYMPTOMATIC) Rectal Bleeding (HX HEMORRHOIDS RECTAL MASS (CA)=CURRENT PPROBLEM) Denies:: Gastroesphageal Reflux Gastrointestinal Bleeding Heartburn Hepatitis Hiatal Hernia Other GI Pertinent History: S/P APPY,PORTACATH Hx of Problems?: No Genitourinary History: Denies:: Kidney Stones Urinary Tract Infection Female Hx: Denies:: Currently Problems with Breasts? Skin History: Denies:: History Skin Disorders? Pressure Ulcers Hx Musculoskeletal Problems?: Yes Musculoskeletal History: Positive for:: Osteoarthritis Denies:: Back Injury Joint Replacement Hx of Psycho/Social Problems?: No Psycho Social History: Denies:: Anxiety Hx Depression Hx Surgeries?: Yes (tonsils, appe, maxillo facial correction (bite correction), PORT) Hx Any Other Health Problems?: Yes Other History: Positive for:: Cancer (rectal ) Denies:: Endocrine Disease Hospitalization Thyroid Disease History Blood Transfusions: Positive for:: Blood Transfusions (probably at time of maxillo facial surgery as teenager) Hx Diabetes: No Hx Alcohol Use: YesAlcoholic Drinks Per Day: 1-3/WEEKHx Substance Use: No Smoking Status: Never Smoker Have You Smoked inLast 12 mo: No Stop/Bang S-Snoring: Do You Snore Loudly: No T-Tired: feel tired, fatigued: No O-Obsered: Observed not breath: No P-Blood Pressure: treated: No B- Body Mass Index > 35 kg/m2: No A- Age over 50: Yes N- Neck Large Circumference: No G- Gender Male: No SHARIF Total Score: 1 SHARIF Risk Assessment: Low Risk, <3 Yes Risk Assessment Category Category 1A: Patient has history of documented sleep apnea, and HAS NOT received any narcotic, sedative or anesthesia administration during this stay. Category 1B: Patient has history of documented sleep apnea, and HAS received any narcotic , sedative or anesthesia administration during this stay Category 2: Patient has SUSPECTED Obstructive Sleep Apnea, and HAS received any narcotic , sedative or anesthesia administration during this stay. Category 3: Patient has SUSPECTED Obstructive Sleep Apnea and HAS NOT received narcotic, sedative or anesthesia administration during this stay. Category 4: Outpatient in Procedural Areas with known sleep apnea or who screen positive for High Risk via the STOP/BANG questionnaire. Exam Exam General Appearance: Alert, Oriented X3, Cooperative, No Acute Distress HEENT/AIRWAY: MP 2 Lungs: Clear to Auscultation, Normal Air Movement Heart: Exam Unremarkable, Regular Rate/Rhythm, No Murmurs/Rubs/Gallops Plan Impression Patient chart reviewed, patient interviewed and anesthestic plan with risks, benefits, and alternatives discussed, and informed consent obtained. NPO Status: MIDNIGHT ASA Physical Status: ASA2 Mod Systemic Disease Anesthetic Plan: GA Bene/Risks/Altern/Consents: Yes HP Complete Prior to Induction: Yes Kylah Canela MD Jan 26, 2017 06:41
[~2017-01-26 09:23] MED LIST changes: -B12/1TAB PO; -IBUP400T22 PO; -MIRT15TA6 PO; -MULT1CAP33 PO; -Vancomycin Inj 1,000 MG in IV Premix 1 EACH IV SCH
[2017-01-26] MEDS ORDERED: Dexamethasone 4 mg/mL Inj ONE (09:24)
[2017-01-26] MEDS ORDERED: fentaNYL-PF 50 mCg/mL 2 mL Inj ONE (09:24)
[2017-01-26] MEDS ORDERED: metroNIDAZOLE 500 mg/100 mL NS Premix IV ONE (10:45)
[2017-01-26] MEDS ORDERED: Vancomycin 1,000mg/200 mL NS IV ONE (10:55)
[2017-01-26] MEDS ORDERED: Lactated Ringer's 1,000 ML IV ONE (11:00)
[2017-01-26] MEDS: Vancomycin Inj 1,000 MG in IV Premix 1 EACH IV SCH (11:05)
[2017-01-26] MEDS ORDERED: MIRT15TA6 PO (11:12)
[2017-01-26] MEDS ORDERED: Lactated Ringer's 1,000 ML IV SCH (11:26)
[2017-01-26] MEDS ORDERED: Lactated Ringer's 500 ML IV PRN (11:26)
[2017-01-26] MEDS ORDERED: MetoCLOpramide 5 mg/mL 2 mL Inj IVPUSH PRN (11:30)
[2017-01-26] MEDS ORDERED: Dexamethasone 4 mg/mL Inj IVPUSH PRN (11:30)
[2017-01-26] MEDS ORDERED: Phenylephrine 10,000 mCg/mL Inj IVPUSH PRN (11:30)
[2017-01-26] MEDS ORDERED: fentaNYL-PF 50 mCg/mL 2 mL Inj IVPUSH PRN (11:30)
[2017-01-26] MEDS ORDERED: Labetalol 5 mg/mL 4 mL Inj IV PRN (11:30)
[2017-01-26] MEDS ORDERED: Ondansetron 2 mg/mL 2 mL Inj IVPUSH PRN (11:30)
[2017-01-26] MEDS ORDERED: Atropine 0.4 mg/mL Inj IVPUSH PRN (11:30)
[2017-01-26] MEDS ORDERED: HYDROmorphone 1 mg/mL Inj IVPUSH PRN (11:30)
[2017-01-26] MEDS ORDERED: EPHEDrine Sulfate 50 mg/mL Inj IVPUSH PRN (11:30)
--- NOTE | 2017-01-26 13:30 | PCM.ANEP1 ---
Post Anesthesia Phase 1 PACU Phase 1 Assessment Vital Signs Vital Signs Date Time Temp Pulse Resp B/P Pulse Ox O2 Delivery O2 Flow Rate FiO2 01/26/17 12:35 37.1 74 11 152/76 98 Room Air 01/26/17 12:30 73 11 157/77 100 Simple Mask 10 01/26/17 12:26 71 13 163/83 100 Simple Mask 10 01/26/17 12:19 71 11 161/79 100 Simple Mask 10 01/26/17 12:16 72 9 156/83 100 Simple Mask 10 01/26/17 12:10 36.7 71 11 157/82 100 Simple Mask 10 01/26/17 11:11 36.8 90 16 152/86 99 Room Air Anesthetic Administered: GA Level of Alertness: Awake, talking GUTHRIE's with Equal Strength: Yes Pain: No Nausea or Vomiting: No Oxygen Delivery: Simple Mask Lungs: Clear to Auscultation, Normal Air Movement Complications: No Kylah Canela MD Jan 26, 2017 13:30
--- NOTE | 2017-01-26 15:05 | OP ---
[address] [address] OPERATIVE REPORT PATIENT: SELENA DELEON : 1945 MR#: [id number] ADMIT: 01/26/2017 JOB ID: [id number] DATE OF SURGERY: 01/26/2017 ANESTHESIA: General. PREOPERATIVE DIAGNOSIS(ES): Anorectal mass. POSTOPERATIVE DIAGNOSIS(ES): Anorectal mass. OPERATIVE PROCEDURE: 1. Exam under anesthesia. 2. Vaginal wall biopsy. 3. Rectal mass biopsy. 4. Transanal debulking of anorectal mass. SURGEON: Chavo Roberts MD. INDUSTRIAL SWEEPER CLEANER: None. COMPLICATIONS: None. ESTIMATED BLOOD LOSS: Less than 5 mL. CONDITION: Satisfactory. SPECIMEN: 1. Vaginal wall core needle biopsy. 2. Rectal mucus. 3. Rectal mass. 4. Core needle biopsy of rectal mass. COMPLICATIONS: None. FINDINGS: As noted before, there is a large, fungating tumor in the rectal canal. Associated with this is a very firm mass with involvement of the posterior vaginal wall. INDICATIONS/SIGNIFICANT HISTORY: The patient is a 71-year-old female, who was recently referred to me for a newly noted anorectal mass after she presented a number of times to the emergency department with symptoms of pelvic pressure. I took her to the operating room last week and performed exam under anesthesia and biopsied a large, fungating component of the mass. 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 I therefore elected to bring her back at this time to perform more extensive biopsies. At the operation last week, there was a lot of mucus that was decompressed from the rectum. Subsequently, she had a lot of symptomatic improvement, which has slowly abated over the past few days. OPERATIVE TECHNIQUE: The patient was taken to the operating room and placed in a supine position. General anesthesia was administered. Perioperative antibiotics given. She was placed in lithotomy. Perineum was prepped and draped in a standard surgical fashion. A procedure pause performed. I began by examining the vagina. Speculum was inserted and the posterior wall palpated. As before, there was a firm, mass-like component of the posterior wall. I took a 14-gauge core needle biopsy of this. There was a good core obtained. This was sent for permanent specimen. I then put the speculum into her anus. As before, a lot of mucus was decompressed. I collected some of this and also sent this for cytologic analysis. The fungating part of the tumor was very friable and bleeding. Components of this came off in my fingers. There was a large component that then prolapsed. I elected to just debulk this using a LigaSure device, both to obtain a good amount of tissue but also to hopefully provide some symptomatic relief. I then was able to palpate the firmer component of this mass involving the anterior rectal wall. Using my finger, I guided the 14-gauge core needle up there and obtained four cores. Adequate hemostasis was noted. The case was then concluded this.
--- NOTE | 2017-01-28 11:27 | PATH ---
SURGICAL PATHOLOGY Attending Physician:Chavo Roberts MD CASE STATUS: Signed Out PATIENT NAME: SELENA DELEON PID: [id number] : 1945 DATE COLLECTED:01/26/2017 19:30 SPECIMEN: 1: Vagina, Biopsy 2: Rectum, Biopsy 3: Rectum, Biopsy CLINICAL HISTORY: RECTAL MASS 1). POSTERIOR VAGINAL WALL BIOPSY 2). RECTAL MASS 3). RECTAL MASS CORE BIOPSY FINAL DIAGNOSIS: 1.POSTERIOR VAGINAL WALL BIOPSY: POORLY-DIFFERENTIATED CARCINOMA DIFFUSELY INFILTRATING BIOPSY SPECIMEN. 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 Negative for evidence of vascular invasion. 3.RECTAL MASS CORE BIOPSY: CORE BIOPSY MATERIAL DIFFUSELY INFILTRATED BY PARTIALLY NECROTIC POORLY- DIFFERENTIATED ADENOCARCINOMA. ICD10 code C20 NOTE: As part of a routine quality associate, Dr. Aaron Abad has also reviewed this case and agrees with the diagnosis. The results of this evaluation are telephoned to Dr. Dakota Dominguez at 0900 on 01/28/17. GROSS DESCRIPTION: The specimens are received in formalin, labeled with the patient's name, and sublabeled as the following: (1) posterior vaginal wall biopsy; (2) rectal mass; (3) rectal mass core. (1) The specimen consists of a piece of parker-white and semi-translucent glistening tissue (1.7 x 0.1 x 0.1 cm). Section code: (1A) intact tissue. Specimen entirely submitted. (2) The specimen consists of multiple pieces of a hardy-white solid spongy papillary friable mass (5.5 x 4.2 x 2.7 cm in aggregate). Ink code: black-possible resection margin. Section code: (2A-2D) smaller pieces, serially sectioned, Rep.; (2E-2H) largest piece, serially sectioned, 2 bisected slices submitted. (3) The specimen consists of multiple fragments of parker-white semitranslucent tissue (2.5 x 0.3 x 0.1 cm in aggregate). 01/27/17 JM MICRO DESCRIPTION: ee diagnosis. ICD-9 CODES: CPT CODES: 1: 71913 2: 67650 3: 16242 Electronically Signed Out Kieran Martinez MD [facility] Pathology [facility]., [address], [place] [address] Technical component performed at [facility], [address], [place], [address]
--- NOTE | 2017-01-28 14:03 | PATH ---
SURGICAL PATHOLOGY Attending Physician:Chavo Roberts MD CASE STATUS: Signed Out PATIENT NAME: SELENA DELEON PID: [id number] : 1945 DATE COLLECTED:01/26/2017 00:00 SPECIMEN: Rectal Mucus CLINICAL HISTORY: Rectal Mucus ICD-10 code not given FINAL DIAGNOSIS: RECTAL MUCUS CYTOLOGY SPECIMEN (CELL BLOCK AND THINPREP): NEGATIVE FOR MALIGNANT CELLS. FEW ATYPICAL-APPEARING EPITHELIAL CELLS PRESENT, WELL FRAGMENTS OF GRANULAR NECROTIC-APPEARING MATERIAL, ALL OF WHICH IS NONDIAGNOSTIC. ICD10 CODE C20 GROSS DESCRIPTION: Received fresh on 01/27/2017 is approximately 1 cc of cloudy pink fluid. Prepared are one cell block and one ThinPrep slide. Vo ICD-9 CODES: CPT CODES: 1: 03243, 46770 Electronically Signed Out Kieran Martinez MD [facility] Pathology [facility] [address] [facility], [place] [address] Technical component performed at [facility], [address] [place] [address] [address], [place], [address]
[2017-01-29] MEDS ORDERED: PROM12.510 PO (16:13)
[2017-01-29] MEDS ORDERED: ONDA-54 PO (16:13)
[2017-02-09] MEDS ORDERED: Fentanyl TOPICAL (10:26)
[2017-03-25] MEDS ORDERED: LACT-38 PO (08:37)
== END 2017-01-26 23:59 | disposition home or self-care (01) ==
LOC: SAS 09:23
PROVIDERS: ATTEND General Practice
DX: C20 Malignant neoplasm of rectum (principal); N89.8 Other specified noninflammatory disorders of vagina; R63.4 Abnormal weight loss; K62.5 Hemorrhage of anus and rectum; M19.90 Unspecified osteoarthritis, unspecified site; Z68.22 Body mass index [BMI] 22.0-22.9, adult; Z87.891 Personal history of nicotine dependence
CPT/HCPCS: 10021; 45171; J1100; J2250; J3010; J3370; J3490; J7120

== ENCOUNTER 2017-02-04 17:14 | Inpatient (IN) | payer MEDICARE ==
[~2017-02-04] VITALS: Ht 170.2 cm; Wt 65.0 kg
[~2017-02-04 17:14] MED LIST changes: -IBUP100T7 PO; +MIRT15TA6 PO; +ONDA-54 PO; +PROM12.510 PO
[2017-02-04 17:22] VITALS: BP 158/77; PULSE 86; RESP 14; O2SAT 99
[2017-02-04 18:19] LABS: BASOPHILS % (AUTO) 0.5 % (0-3); EOSINOPHILS % (AUTO) 5.6 % (0-5); MONOCYTES % (AUTO) 2.3 % (4-12); Mean Corpuscular Hemoglobin 30.3 pg (27.0-35.0); Mean Corpuscular Volume 90.3 fL (81-100); NEUTROPHILS % (AUTO) 69.5 % (40-74); Platelet Count 273 bil/L (150-400)
--- NOTE | 2017-02-04 18:20 | ED.REPORT ---
HPI-General Illness Date of Service Feb 04, 2017 ED Provider: Jabari Miller DO This is a very pleasant 71-year-old female who presents via EMS for evaluation of syncope and fever. Evidently she was recently begun chemotherapy for localized rectal cancer. Her chemotherapy dose was last week. She states she has not been able to eat or drink very well. For the past couple days she has been feeling dizzy a little bit lightheaded. She seems to have spells or she develops tunnel vision. Initially the tunnel vision came about when she was standing however today she nearly passed out while she was lying down. EMS was called. Evidently she reached out to her oncologist will also recommended that she be seen. 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 She presents now feeling a little bit lightheaded.. Nursing Notes Stated Complaint: DIZZY Chief Complaint: General Complaint Nursing Notes Reviewed: Yes Allergies: Coded Allergies: Penicillins (Verified Allergy, Severe, Anaphylaxis, 01/25/17) oxycodone (Verified Adverse Reaction, Severe, Hallucinations, 01/25/17) Scheduled Baclofen (Baclofen) 20 Mg Tablet 20 MG PO TID Mirtazapine (Mirtazapine) 15 Mg Tablet 15 MG PO HS Multivitamin (Multi Vitamin Daily) 1 Each Tablet 1 EACH PO DAILY Scheduled PRN Acetaminophen (Acetaminophen) 325 Mg Tablet 325 MG PO Q4H PRN PRN For Fever Ondansetron (Ondansetron) 8 Mg Tablet 8 MG PO Q8H PRN PRN For Nausea Promethazine (Promethazine) 12.5 Mg Tablet 12.5 MG PO Q4H PRN PRN For Nausea General Time Seen by MD: 18:13 Chief Complaint Dizziness Hx Obtained From: Patient Arrived By: Ambulance Sudden in Onset?: No Onset Occurred: Yesterday Symptom Duration: Since onset Location: : Back Quality: Painful Radiation: : Does not radiate Severity: Current: Mild Severity: Maximum: Moderate Associated with: Reports: Dizziness, Fever (101 F ), Weakness, Denies: Difficulty breathing, Nausea, Shortness of breath, Vomiting Pertinent Negative: Pt denies other symptoms Exacerbated by: Standing up Recent Healthcare: Recent doctor visit, Recent hospitalization Past Medical History Past Medical History Notes: Oncologist: Dr. Dominguez Past Medical History Colon Cancer - Diagnosed 01/26 Hemorrhoids Past Surgical History Jaw Reports: Appendectomy, Tonsillectomy Smoking History Never Smoker Social History Alcohol Use: Denies alcohol use Drug Use: Denies drug use Other Social History: Good social support, Lives alone, Local resident Ambulatory Status Independent Review of Systems Decreased appetite Decreased fluid intake Full Review of Systems Constitutional: Reports: Fever (101 F) Respiratory: Denies: Dyspnea on exertion, Shortness of breath GI: Denies: Hematochezia, Nausea, Vomiting Musculoskeletal: Reports: Back pain Neurologic: Reports: Dizziness, Syncope (near syncope ), Weakness Complete sys rev & neg: except as marked. Physical Exam Vital Signs Vital Signs Date Time Temp Pulse Resp B/P Pulse Ox O2 Delivery O2 Flow Rate FiO2 02/04/17 17:22 37.4 86 14 158/77 99 Room Air Initial VS: Reviewed Neck: Supple, Non-tender, Full range of motion Extremities: Vascular intact, Neuro intact, No swelling, No tenderness Skin: Warm, Dry, No cyanosis Neurologic: Alert, Oriented, Nonfocal Psychiatric: Mood/affect normal, Behavior normal, Normal thought content General/Constitutional: Awake, Alert, No acute distress Head / Eyes: Atraumatic, Normocephalic, PERRL ENT: Atraumatic, Airway patent Mouth: Positive: Mucous membranes dry Respiratory / Chest: Atraumatic, Breath sounds NL, Breath sounds = bilat, No respiratory distress Cardiovascular: Heart rate NL, Regular rhythm, Heart sounds NL Abdomen: Atraumatic, Soft, Non-tender Back: Atraumatic Flank / Spine / Paraspinal: Positive: Lumbar paraspinal tend... (Low) Interpretation & Diagnostics Lab Results Interpretation Result Diagram: 02/05/17 0645 02/05/17 0645 Test 02/04/17 18:00 02/04/17 19:10 D-Dimer 9.61mg/L FEU (<0.50) Total Bilirubin 0.5mg/dL (0.0-1.2) Aspartate Amino Transf (AST/SGOT) 19U/L (0-50) Alanine Aminotransferase (ALT/SGPT) 7U/L (0-32) Alkaline Phosphatase 69U/L (25-165) Total Protein 6.3g/dL (6.4-8.4) Albumin 3.5g/dL (3.4-5.0) Troponin T < 0.010ug/L (0.0-0.011) ECG Interpretation ECG Interpretation: Normal sinus rhythm Rate 80 Old inferior Q waves Time: 20:20 Interpreted by: ED physician Normal ECG Interpretation: No change from prior ECGs (01/13/17) X-Ray Chest Interpretation Chest Xray Interpretation: IMPRESSION: No acute cardiopulmonary disease process. Dictated by: Tova Clark MD, PhD on 02/04/2017 at 20:46 Interpretation / Wet Read by: Interpret - Radiologist X-Ray Interpretation Xray Interpretation: IMPRESSION: 1. Mild anterior column L1 compression deformity stable compared to CT scan obtained 01/16/17. 2. Multilevel degenerative disease and facet arthropathy. Dictated by: Tova Clark MD, PhD on 02/04/2017 at 20:47 Study Performed: Lumbar Spine Interpretation / Wet Read by: Interpret - Radiologist Xray Interpretation: IMPRESSION: Multilevel degenerative disc disease. No fracture. No acute osseous lesion. If there are persistent symptoms or continued clinical suspicion for pathology, then MRI should be considered for further evaluation. Dictated by: Tova Clark MD, PhD on 02/04/2017 at 20:45 Study Performed: Throacic X-ray Interpretation / Wet Read by: Interpret - Radiologist CT Chest Interpretation IMPRESSION: 1. No pulmonary embolus. 2. No acute lung opacities. 3. Atherosclerosis including dense atherosclerotic calcifications in the coronary vasculature. Dictated by: Tova Clark MD, PhD on 02/04/2017 at 20:54 Study type: CT pulm angiogram Interpretation / Wet Read by: Interpret - Radiologist Re-Eval/Medical Decision Time of Eval: 20:30 Patient Status: Condition improved Re-Evaluation/Progress Note: Patient is rechecked. She is informed of her concerning lab results and likely plan to admit. Time of Eval: 22:06 Patient Status: Condition improved Re-Evaluation/Progress Note: Patient is given the updated treatment plan. She understands and agrees with the plan to admit. All questions are addressed. Consultation : Referral / Consult Name: Lucia Castillo DO Call Returned at: 22:07 Tool Room Attendant: Will see patient, Agrees with eval, Agrees with plan, Accepts admit Counseled Regarding: Diagnosis, Lab results, Need for admission Discharge & Departure Primary Impression: Syncope, near Additional Impressions: Fever Fever type: unspecified Qualified Code: R50.9 - Fever, unspecified Status post chemotherapy Disposition: ADMITTED TO HOSPITAL Discharge Condition All VS Reviewed: Yes Condition: Stable Referrals: Dakota Dominguez MD (PCP) Cady Attestation Portions of this note were transcribed by Daniel Mayberry. I, Dr. Miller personally performed the history, physical exam and medical decision-making; I reviewed and confirmed the accuracy of the information in the transcribed note. Signed by: Cady Rawls, 02/04/17 1900. copies to: Dakota Dominguez MD, Todd P DO Feb 04, 2017 18:20 DANIEL MAYBERRY Feb 04, 2017 18:34 Albumin 3.5g/dL (3.4-5.0) Lactic Acid Level 1.1mmol/L (0.4-2.0) Troponin T < 0.010ug/L (0.0-0.011) Procalcitonin 0.09ng/mL (0.00-0.08) ECG Interpretation ECG Interpretation: Normal sinus rhythm Rate 80 Old inferior Q waves Time: 20:20 Interpreted by: ED physician Normal ECG Interpretation: No change from prior ECGs (01/13/17) X-Ray Chest Interpretation Chest Xray Interpretation: IMPRESSION: No acute cardiopulmonary disease process. Dictated by: Tova Clark MD, PhD on 02/04/2017 at 20:46 Interpretation / Wet Read by: Interpret - Radiologist X-Ray Interpretation Xray Interpretation: IMPRESSION: 1. Mild anterior column L1 compression deformity stable compared to CT scan obtained 01/16/17. 2. Multilevel degenerative disease and facet arthropathy. Dictated by: Tova Clark MD, PhD on 02/04/2017 at 20:47 Study Performed: Lumbar Spine Interpretation / Wet Read by: Interpret - Radiologist Xray Interpretation: IMPRESSION: Multilevel degenerative disc disease. No fracture. No acute osseous lesion. If there are persistent symptoms or continued clinical suspicion for pathology, then MRI should be considered for further evaluation. Dictated by: Tova Clark MD, PhD on 02/04/2017 at 20:45 Study Performed: Throacic X-ray Interpretation / Wet Read by: Interpret - Radiologist CT Chest Interpretation IMPRESSION: 1. No pulmonary embolus. 2. No acute lung opacities. 3. Atherosclerosis including dense atherosclerotic calcifications in the coronary vasculature. Dictated by: Tova Clark MD, PhD on 02/04/2017 at 20:54 Study type: CT pulm angiogram Interpretation / Wet Read by: Interpret - Radiologist Re-Eval/Medical Decision Time of Eval: 20:30 Patient Status: Condition improved Re-Evaluation/Progress Note: Patient is rechecked. She is informed of her concerning lab results and likely plan to admit. Time of Eval: 22:06 Patient Status: Condition improved Re-Evaluation/Progress Note: Patient is given the updated treatment plan. She understands and agrees with the plan to admit. All questions are addressed. Consultation : Referral / Consult Name: Lucia Castillo Call Returned at: 22:07 Tool Room Attendant: Will see patient, Agrees with eval, Agrees with plan, Accepts admit Counseled Regarding: Diagnosis, Lab results, Need for admission Discharge & Departure Primary Impression: Syncope, near Additional Impressions: Fever Fever type: unspecified Qualified Code: R50.9 - Fever, unspecified Status post chemotherapy Disposition: ADMITTED TO HOSPITAL Discharge Condition All VS Reviewed: Yes Condition: Stable Referrals: Dakota Dominguez MD (PCP) Cady Attestation Portions of this note were transcribed by Daniel Mayberry. I, Dr. Miller personally performed the history, physical exam and medical decision-making; I reviewed and confirmed the accuracy of the information in the transcribed note. Signed by: Cady Rawls, 02/04/17 [id number]. copies to: Dakota Dominguez MD, Todd P DO Feb 04, 2017 18:20 DANIEL MAYBERRY Feb 04, 2017 18:34
[2017-02-04] MEDS ORDERED: Ondansetron 2 mg/mL 2 mL Inj IVPUSH PRN (18:35)
[2017-02-04] MEDS ORDERED: 0.9% Sodium Chloride 1,000 ML IV ONE ×2 (18:35→22:45)
[2017-02-04 18:41] LABS: Magnesium 1.7 mg/dL (1.6-2.6)
[2017-02-04] MEDS: fentaNYL-PF 50 mCg/mL 2 mL Inj IVPUSH PRN ×3 (18:49→23:55)
[2017-02-04] MEDS ORDERED: Potassium Chloride Inj 20 MEQ in Dextrose 5% 250 ML IV ONE (19:10)
[2017-02-04 20:20] LABS: TROPONIN T < 0.010 ug/L (0.0-0.011)
--- NOTE | 2017-02-04 20:47 | DRSVH ---
PROCEDURE: X-RAY THORACIC SPINE, 2 VIEWS INDICATIONS: fever, chemotherapy pt, syncope TECHNIQUE: 3 views of the thoracic spine were acquired. COMPARISON: None. FINDINGS: Bones: No fractures or dislocations. No suspicious bony lesions. 12 pairs of ribs are noted, and ap pear intact where visualized. Multilevel degenerative changes are noted. Soft tissues: No paravertebral stripe thickening. Presence of central venous catheter noted. IMPRESSION: Multilevel degenerative disc disease. No fracture. No acute osseous lesion. If there are persistent symptoms or continued clinical suspicion for pathology, then MRI should be considered for further evaluation. Dictated by: Tova Clark MD, PhD on 02/04/2017 at 20:45 Approved by: Tova Clark MD, PhD on 02/04/2017 at 20:45
--- NOTE | 2017-02-04 20:48 | DRSVH ---
PROCEDURE: X-RAY CHEST, TWO VIEWS ([id number]) INDICATIONS: fever, chemotherapy pt, syncope TECHNIQUE: 2 views of the chest were acquired. COMPARISON: None. FINDINGS: Surgical changes and devices: Left chest wall Port-A-Cath.. Lungs and pleura: No pleural effusions or pneumothorax. Lungs are clear. Mediastinum: Mediastinal contours are normal. Heart size is normal. Bones and chest wall: No suspicious bony abnormalities. Soft tissues appear unremarkable. IMPRESSION: No acute cardiopulmonary disease process. Dictated by: Tova Clark MD, PhD on 02/04/2017 at 20:46 Approved by: Tova Clark MD, PhD on 02/04/2017 at 20:46
--- NOTE | 2017-02-04 20:50 | DRSVH ---
PROCEDURE: X-RAY LUMBAR SPINE, 2 OR 3 VIEW INDICATIONS: fever, chemotherapy pt, syncope TECHNIQUE: 3 views of the lumbar spine were acquired. COMPARISON: [facility], CT, CT CHEST ABD PELVIS W CON, 01/16/2017, 15:25. FINDINGS: Bones: 5 [id number] vertebrae are present. Trace L4-L5 anterolisthesis. Trace L2-L3 and L3-L4 retrolisthesis. There is anterior wedging of the L1 vertebral body compatible with compression defo rmity is stable compared to prior CT scan obtained 01/16/2017.. No suspicious bony lesions. Multilevel degenerative changes and facet arthropathy. Soft tissues: Overlying bowel gas pattern is normal. No suspicious soft tissue calcifications. IMPRESSION: 1. Mild anterior column L1 compression deformity stable compared to CT scan obtained 01/16/17. 2. Multilevel degenerative disease and facet arthropathy. Dictated by: Tova Clark MD, PhD on 02/04/2017 at 20:47 Approved by: Tova Clark MD, PhD on 02/04/2017 at 20:49
--- NOTE | 2017-02-04 21:00 | DRSVH ---
PROCEDURE: CT ANGIO CHEST PULMONARY EMBOLISM ([id number]) INDICATIONS: syncope, rectal cancer TECHNIQUE: After the administration of intravenous contrast, 2 mm thick sections acquired from the pulmonary api jacob to the posterior costophrenic angles. 3-dimensional maximum intensity projection (MIP) coronal a nd sagittal reformats were then acquired through the thorax. For radiation dose reduction, the follo wing was used: automated exposure control, adjustment of mA and/or kV according to patient size. COMPARISON: [facility], CT, CT CHEST ABD PELVIS W CON, 01/16/2017, 15:25. FINDINGS: Image quality: Excellent. Pulmonary arteries: Pulmonary arteries are normal in size, and demonstrate no intraluminal filling d efects to suggest central pulmonary embolism. Lungs and pleura: Atelectasis is noted in the dependent portions of the lungs. Parenchymal scarring and calcified granuloma noted in the left lung base. No pleural effusions or pneumothorax. Central and peripheral airways are patent. Mediastinum: Heart size is normal, without pericardial effusion. Atherosclerotic calcifications note d in the aorta, great vessels and the coronary vasculature. No mediastinal or hilar adenopathy. Calc ified mediastinal and hilar lymph nodes are noted compatible sequela prior granulomatous disease. Tho racic aorta is normal in caliber and enhancement. Esophagus is normal in caliber, without hiatal her carlyn. Bones and chest wall: Left chest wall Port-A-Cath is noted. No suspicious bony lesions. Ribs and th oracic spine appear intact throughout. Thyroid gland is within normal limits. No axillary or suprac lavicular adenopathy. Abdomen: Visualized upper abdominal solid organs appear normal in the early arterial phase of enhanc ement. IMPRESSION: 1. No pulmonary embolus. 2. No acute lung opacities. 3. Atherosclerosis including dense atherosclerotic calcifications in the coronary vasculature. Dictated by: Tova Clark MD, PhD on 02/04/2017 at 20:54 Approved by: Tova Clark MD, PhD on 02/04/2017 at 20:58
[2017-02-04 22:01] VITALS: BP 153/68; PULSE 80; RESP 17; O2SAT 96
[2017-02-04] MEDS ORDERED: Polyethylene Glycol (PEG) 17 Gm Powder PO PRN (22:55)
[2017-02-04] MEDS ORDERED: BACL20TA PO (22:55)
[2017-02-04] MEDS ORDERED: Alum-Mag Hydrox-Simeth 30 mL Suspension PO PRN (22:55)
[2017-02-04 23:00] VITALS: BP 152/79; PULSE 79; RESP 16; O2SAT 95
--- NOTE | 2017-02-04 23:34 | PCM.HPMED ---
Subjective Date of Service Feb 04, 2017 Primary Provider: Admitting Physician: Lucia Castillo DO Primary Care Physician: Keiko Roy MD Attending Physician: Lucia Castillo DO Admit Status: From the Emergency Department, Remote Telemetry Chief Complaint: Syncope and fever History of Present Illness: Ms. Sandoval is an extremely pleasant 71-year-old woman with the unfortunate history of unresectable rectal cancer with invasion of the uterus, vaginal wall , and possibly the posterior bladder wall, and recent initiation of FOLFOX therapy with first dose given in 01/29/2017, that presented to the emergency department via EMS for a one-week history of progressive weakness, dehydration, and dizziness, and a 1 day history of syncope and fever. She is admitted for evaluation and treatment of her presenting symptoms. Hospital day 1 Ms. Sandoval that she has felt relatively well over the recent months, with the exception of near syncopal events earlier this month prior to, and leading to, her diagnosis of cancer, and also until last week after her first chemotherapy session. She notes that prior to this recent diagnosis of cancer, she describes herself as fairly healthy with no underlying medical conditions. Her first FOLFOX treatment was last week, and she noted that throughout the days leading up to this admission, she was experiencing a significantly decreased appetite, dehydration, and generalized malaise with fatigue. She states she was aware and attempted to stay well hydrated, but she was completely exhausted. She admits to poor by mouth intake and days leading to admission. She notes that over the recent week, she has been intermittently dizzy, with near syncopal events, but it was not until the day of admission, that she noticed that she started to black out and "see stars." At that time, she states she was resting on the toilet, and denies any traumatic falls or head strikes. She has not participated in any rigorous activity over the recent week , and has largely been bed/couch bound secondary to her profound fatigue and weakness. She denies any fever, chills, vomiting, diarrhea, constipation, dysuria, hematuria. She states she is aware that her temperature was elevated, but she insists she did not feel feverish. She is followed by Dr. Dominguez of [facility] oncology, and first FOLFOX treatment was . Notes indicate that she has a T4 N3 rectal cancer, which is unresectable with invasion to the uterus, vaginal wall, and possibly the posterior bladder wall. The plan was to receive FOLFOX therapy every 2 weeks for 2 months, obtain repeat imaging, and at that time, decide whether to add radiation. This is a new diagnosis for the patient, diagnosed in January of this year. In the ED, T 37.4, pulse 86, respiratory rate 14, blood pressure 158/77, 99% on room air; initial labs revealed WBC 4.3, hemoglobin 10, platelets 273; potassium 3.0, lactic acid 1.1, pro calcitonin 0.09; troponin negative; d-dimer elevated at 9.61. Multiple imaging studies were obtained, including XR thoracic spine which revealed multilevel degenerative disc disease without evidence of fracture or acute osseous lesions; lumbar x-ray revealed mild anterior L1 compression deformity which was stable compared to previous imaging , in addition to multilevel degenerative disease and facet arthropathy; chest x- ray did not reveal any acute cardiopulmonary disease; CTA was negative for evidence of pulmonary emboli, and no acute lung opacities were noted, there was atelectasis noted in the dependent portions of the lung with parenchymal scarring and a calcified granuloma within the left lung base. Blood cultures were obtained. Patient was transferred to and seen in [facility] in stable condition. Review of Systems: Complete ROS obtained; pertinent positives and negatives as noted above Allergies Coded Allergies: Penicillins (Verified Allergy, Severe, Anaphylaxis, 01/25/17) oxycodone (Verified Adverse Reaction, Severe, Hallucinations, 01/25/17) Home Medications Patient denies any routine home medications for blood pressure, diabetes, pulmonary issues She states her current medications as: Baclofen Mirtazapine Zofran/promethazine Tylenol as needed Multivitamin PMH Invasive rectal cancer, unresectable, on FOLFOX therapy Pneumonia Bronchitis Atherosclerosis Hemorrhoids Arthritis Muscle spasms Patient denies any personal history of diabetes, hypertension, coronary artery disease, asthma Surgical History Appendectomy Tonsillectomy Maxillofacial surgery Port-A-Cath placement Family History Patient reports her father had unspecified cancer of his liver, she reports grandmother had stomach cancer Social History Occupation: retired Hx Alcohol Use: Yes (rarely) Hx Substance Use: No Hx Tobacco Use: Yes (distant, and college; no use since that time) Smoking Status: Former Smoker (greater than 50 years ago), Never Smoker Living Arrangement: Alone (local in [place]) Exam Vital Signs Vital Sign - Last Date Time Temp Pulse Resp B/P Pulse Ox O2 Delivery O2 Flow Rate FiO2 02/04/17 22:01 37.2 80 17 153/68 96 Room Air Exam General: Well-appearing female resting supine in bed in no acute distress; pleasant and cooperative HEENT: Atraumatic, EOMI, sclera anicteric, no conjunctival hemorrhage, mucous membranes appear dry Cardiac: No appreciable murmurs, regular rate and rhythm entire examination Respiratory: Good inspiratory effort, adequate airflow all khalil, no wheeze or rhonchi appreciated Chest: Port-A-Cath placement of left upper chest with incision that appears well -healed without evidence of surrounding erythema or active bleeding Abdomen: Soft, nontender, nondistended Pulses: Radial equal and bilateral Skin: Warm and dry Extremities: No edema of the upper or lower extremities; left arm has 2 IV sites , one antecubital, one at wrist, neither appear infiltrated Neuro: Cranial nerves II through XII grossly intact, facial expressions equal and symmetric, speech without slurring Psych: Appropriate mood, affect, and responsive to questioning; good insight and judgment; patient in good spirits despite recent grim diagnosis Lab and Diagnostics Result Diagram: 02/04/17 1800 02/04/17 1800 Assessment & Plan Ms. Sandoval is an extremely pleasant 71-year-old woman with the unfortunate history of unresectable rectal cancer with invasion of the uterus, vaginal wall , and possibly the posterior bladder wall, and recent initiation of FOLFOX therapy with first dose given in 01/29/2017, that presented to the emergency department via EMS for a one-week history of progressive weakness, dehydration, and dizziness, and a 1 day history of syncope and fever. She is admitted for evaluation and treatment of her presenting symptoms. Hospital day 1 Syncope, acute, present on admission. Under evaluation - Patient reports one-week history of increased fatigue and dizziness; report of syncopal event 1 day of admission - DDx: Extreme fatigue, dehydration, underlying infection, effects of chemotherapy, dysrhythmias, electrolyte abnormalities, thyroid dysfunction - Labs: PCT, thyroid studies, BNP - Blood cultures obtained - Telemetry monitoring - NS 100 - Orthostatics - Physical therapy evaluation; patient lives alone Fever, acute, present on admission. Resolved - Reports from EMS indicated temperature of 101 - Vitals on admission: T 37.4, 37.2 - Due to the single temp of 101, fever in a neutropenic patient protocol initiated, although WBC 4.3 - Precautions in place - Patient is considered low risk at this time secondary to WBC, unremarkable LFTs, normal creatinine, no evidence of IV site or Port-A-Cath place infection, no evidence of abdominal pain - Patient states anaphylactic reaction to penicillin - Meropenem 2g IV x1 given; will need authorization from ID if abx needs to be continued based on sx/labs - FYI- Dr. Salmon is reported to be out of town, please confirm in morning Elevated d-dimer, chronicity unknown, present on admission. Presumed stable - On admit: D-dimer 9.61 - CTA completed on admission negative for pulmonary embolism - Elevation likely secondary to ongoing malignancy - Lovenox therapy for DVT prophylaxis Muscle spasms, acute, present on admission. Active - Patient states muscle spasms have increased over the recent week, she attributed this to chemotherapy - DDx: Electrolyte imbalances secondary to dehydration, chemotherapy, fatigue, prolonged bedrest - Monitor electrolytes and replete as needed - Patient reports home Rx: Baclofen, continued - Patient stated fentanyl in ED was also effective; continued Rectal cancer, locally invasive, chronic. Presumed stable - Followed by Dr. Dominguez - FOLFOX, first dose 01/29/2017 - Oncology consult order placed in [facility] to b2b sales professional oncologist; please contact team with verbal report - Neutropenic cautions in place: Handwashing, masks or any persons entering the room with URI symptoms Goals of care - Patient would like full resuscitation at this time for an emergent event - Again, her malignancy is a new diagnosis for her, and she admits that she needs to give the long-term options good thought - She is aware she should complete advanced directives; consider social work coordinator or palliative consultation to assist with this PRN: Fever/pain/bowel/nausea DVT: Lovenox Diet: General GI: Not indicated CODE STATUS: Full code Patient status: Due to severity of presenting symptoms, risk of adverse events, and likely course of care, anticipated length of stay does not exceed 2 midnights: Admitted as observation Pain Evaluation: Adequate Pain Control GI Prophylaxis: Not indicated VTE Prophylaxis: Sub-Q Enoxaparin Resuscitation Status: CPR: Attempt Resuscitation Attending Statement The patient was seen and examined together with house staff on 02/05/2017 and I agree with the history, exam and plan as outlined in the note above. Maria Elena Murillo DO Feb 04, 2017 23:34 Lucia Castillo DO Feb 05, 2017 05:45
[2017-02-05] VITALS (7 sets, daily range): BP systolic 125–164; BP diastolic 54–82; PULSE 80–89; RESP 16–18; O2SAT 93–99
[2017-02-05 00:48] LABS: APPEARANCE,URINE SLIGHTLY CLOUDY (CLEAR,HAZY); COLOR,URINE YELLOW (YELLOW)
[2017-02-05 00:49] LABS: OCCULT BLOOD,URINE LARGE (NEGATIVE); UROBILINOGEN,URINE NORMAL (NORMAL)
[2017-02-05] MEDS ORDERED: Meropenem Inj 2,000 MG in 0.9% Sodium Chloride-Pha MIX 100 ML IV ONE (01:00)
--- NOTE | 2017-02-05 02:08 | NUR ---
Admit note Pt. arrived to the floor via gurney at 2300 accompanied by ED staff and significant others, Pt. was seen by Dr. Murillo at 2330, Pt. was admitted due to dizziness and back pain from syncopal episodes at home, was able to transfer herself in bed slowly with 1 person limited assist, pt. complaining of back pain when moving, oriented to room, bathroom, TV, call light and bed, placed telemetry and SCD's per order, Pt. denies N/V, chest pain or SOB, A/Ox3, calm and pleasant, continent of b/b, uses bedpan this shift due to pt. refused to get oob at this time, given prn pain meds with a state of relief, pt. able to sleep and rest, no s/s of acute distress noted, call light in reach, hourly rounds, will continue to monitor.
[2017-02-05] MEDS: fentaNYL-PF 50 mCg/mL 2 mL Inj IVPUSH PRN ×6 (04:05→23:50)
[2017-02-05 07:17] LABS: BASOPHILS % (AUTO) 0.3 % (0-3); EOSINOPHILS % (AUTO) 8.4 % (0-5); MONOCYTES % (AUTO) 2.6 % (4-12); Mean Corpuscular Hemoglobin 29.2 pg (27.0-35.0); Mean Corpuscular Volume 90.4 fL (81-100); NEUTROPHILS % (AUTO) 60.1 % (40-74); Platelet Count 266 bil/L (150-400)
[2017-02-05 07:36] LABS: Magnesium 1.8 mg/dL (1.6-2.6); Phosphorus 2.5 mg/dL (2.5-4.9)
[2017-02-05] MEDS: 0.9% Sodium Chloride 1,000 ML IV SCH ×2 (08:02→18:24)
--- NOTE | 2017-02-05 10:38 | NUR ---
Evaluation completed. Please go to "Notes" then click on "Assessments and Notes" (bottom left corner of screen). Then select appropriate discipline tab on top of screen.
--- NOTE | 2017-02-05 10:40 | NUR ---
Morning Rounds Staffed patient's case with Dr. Marcus and social work. stated patient will stay another night at least, should possibly reevaluate her admission status tomorrow if it is likely she will remain for another night.
--- NOTE | 2017-02-05 11:05 | NUR ---
Gas Pain Contacted Dr. Marcus with the following cook page: Patient is requesting medication to take prior to eating in order to reduce gas pain. Also, patient's current BP is 164/82. Thank you. Marcia [facility] [id number]
--- NOTE | 2017-02-05 13:54 | PCM.PNMED ---
Subjective Date of Service Feb 05, 2017 Subjective Patient seen and examined. Feeling better today. Denies any head ache of dizziness. Still having significant back pain and spasms. No fever or chills. Exam Vital Signs Vital Sign - Last Date Time Temp Pulse Resp B/P Pulse Ox O2 Delivery O2 Flow Rate FiO2 02/05/17 04:41 36.9 80 16 137/78 93 Room Air Intake and Output 02/04/17 02/04/17 02/05/17 Cumulative From/Thru 15:00 23:00 07:00 02/04/17 17:22 - 02/05/17 06:15 Intake Total 260 ml 260 ml Output Total 300 ml 300 ml Balance -40 ml -40 ml Intake Oral 120 ml 120 ml IV Total 140 ml 140 ml Output Urine Total 300 ml 300 ml Exam General: Alert, Oriented X3, Cooperative, No acute Distress Eyes: PERRLA, Scleral Anicteric Mouth: Mouth Normal, Mucous Membranes dry Neck: Supple, no Thyromegaly, trachea central. Chest & Lungs: Clear to auscultation & percussion, No adventitious breath sounds, no crackles, no wheeze Cardiovascular: Normal S1, Normal S2, No Murmurs/Rubs/Gallops, Regular Rate/ Rhythm, (No JVD, no peripheral edema) Pulses: Radial (present and equal), Dorsalis Pedi (present and equal) Abdomen: Soft, Non-tender, Non-distended, Normoactive bowel tones. Musculoskeletal: Unremarkable. Normal range of motion, no swollen or erythematous joints Extremities: No edema, no cyanosis, no clubbing. Skin: No rashes. Warm and dry, no erythematous areas Neurological: Grossly neurologically intact, Normal Speech, Sensation Intact Lymphatic: Lymph nodes Cervical and Axillary not palpable. IVs and Medications Medications Reviewed: Medications were reviewed in detail Lab and Diagnostics Laboratory Tests Test 02/04/17 18:00 02/04/17 18:53 02/04/17 19:10 02/05/17 00:35 White Blood Count 4.3th/mm3 (3.8-10.1) Red Blood Count 3.30mil/mm3 (3.90-5.20) Hemoglobin 10.0g/dL (12.0-15.6) Hematocrit 29.8% (35.0-46.0) Mean Corpuscular Volume 90.3fL (81-100) Mean Corpuscular Hemoglobin 30.3pg (27.0-35.0) Mean Corpuscular Hemoglobin Concent 33.6% (32.0-37.0) Red Cell Distribution Width 12.8% (12.3-15.4) Platelet Count 273bil/L (150-400) Neutrophils (%) (Auto) 69.5% (40-74) Lymphocytes (%) (Auto) 21.9% (14-46) Monocytes (%) (Auto) 2.3% (4-12) Eosinophils (%) (Auto) 5.6% (0-5) Basophils (%) (Auto) 0.5% (0-3) D-Dimer 9.61mg/L FEU (<0.50) Sodium Level 138mEq/L (134-144) Potassium Level 3.0mEq/L (3.5-5.2) Chloride Level 98mEq/L (97-108) Carbon Dioxide Level 22mmol/L (18-29) Blood Urea Nitrogen 15mg/dL (8-27) Creatinine 0.74mg/dL (0.57-1.00) Estimat Glomerular Filtration Rate 110mL/min (>59) Glucose Level 103mg/dL (60-99) Calcium Level 8.6mg/dL (8.5-10.1) Magnesium Level 1.7mg/dL (1.6-2.6) Total Bilirubin 0.5mg/dL (0.0-1.2) Aspartate Amino Transf (AST/SGOT) 19U/L (0-50) Alanine Aminotransferase (ALT/SGPT) 7U/L (0-32) Alkaline Phosphatase 69U/L (25-165) Total Protein 6.3g/dL (6.4-8.4) Albumin 3.5g/dL (3.4-5.0) Lactic Acid Level 1.1mmol/L (0.4-2.0) Troponin T < 0.010ug/L (0.0-0.011) Procalcitonin 0.09ng/mL (0.00-0.08) Urine Color Yellow (YELLOW) Urine Appearance Slightly cloudy Urine pH 6.0 (5.0-8.0) Urine Specific [place] 1.040 (1.003-1.035) Urine Protein Negativemg/dL (NEG,TRACE) Urine Glucose (UA) Negativemg/dL (NEGATIVE) Urine Ketones 15mg/dL (NEGATIVE) Urine Occult Blood Large (NEGATIVE) Urine Nitrite Negative (NEGATIVE) Urine Bilirubin Negative (NEGATIVE) Urine Urobilinogen Normalmg/dL (NORMAL) Urine Leukocyte Esterase Small (NEGATIVE) Urine RBC 11-50/hpf (0-2) Urine WBC 6-10/hpf (0-5) Urine Epithelial Cells Many/hpf (NONE-MOD) Urine Crystals Amorphous urates (NONE Urine Bacteria None/hpf (NONE-FEW) Urine Hyaline Casts None/lpf (NONE) Urine Granular Casts None seen (NONE SEEN) Urine Waxy Casts None seen (NONE SEEN) Urine Red Blood Cell Casts None seen (NONE SEEN) Urine White Blood Cell Casts None seen (NONE SEEN) Urine Mucus None seen (None Seen) Urine Trichomonas None seen (NONE SEEN) Urine Yeast None (NONE SEEN) Urine Culture Reflexed Indicated Test 02/05/17 06:45 White Blood Count 3.9th/mm3 (3.8-10.1) Red Blood Count 3.22mil/mm3 (3.90-5.20) Hemoglobin 9.4g/dL (12.0-15.6) Hematocrit 29.1% (35.0-46.0) Mean Corpuscular Volume 90.4fL (81-100) Mean Corpuscular Hemoglobin 29.2pg (27.0-35.0) Mean Corpuscular Hemoglobin Concent 32.3% (32.0-37.0) Red Cell Distribution Width 13.0% (12.3-15.4) Platelet Count 266bil/L (150-400) Neutrophils (%) (Auto) 60.1% (40-74) Lymphocytes (%) (Auto) 28.1% (14-46) Monocytes (%) (Auto) 2.6% (4-12) Eosinophils (%) (Auto) 8.4% (0-5) Basophils (%) (Auto) 0.3% (0-3) Sodium Level 141mEq/L (134-144) Potassium Level 3.4mEq/L (3.5-5.2) Chloride Level 103mEq/L (97-108) Carbon Dioxide Level 22mmol/L (18-29) Blood Urea Nitrogen 10mg/dL (8-27) Creatinine 0.62mg/dL (0.57-1.00) Estimat Glomerular Filtration Rate 135mL/min (>59) Glucose Level 83mg/dL (60-99) Lactic Acid Level 0.5mmol/L (0.4-2.0) Calcium Level 8.6mg/dL (8.5-10.1) Phosphorus Level 2.5mg/dL (2.5-4.9) Magnesium Level 1.8mg/dL (1.6-2.6) Procalcitonin 0.10ng/mL (0.00-0.08) Thyroid Stimulating Hormone (TSH) 9.090uIU/mL (0.450-4.500) Free Thyroxine 1.06ng/dL (0.82-1.77) Microbiology 02/04/17 Blood Culture, Received Pending 02/05/17 Influenza Screen - Final, Complete 02/05/17 Adenovirus DNA (PCR) - Final, Complete Not Detected 02/05/17 Coronavirus 229E PCR - Final, Complete Not Detected 02/05/17 Coronavirus HKU1 PCR - Final, Complete Not Detected 02/05/17 Coronavirus NL63 PCR - Final, Complete Not Detected 02/05/17 Coronavirus OC43 PCR - Final, Complete Not Detected 02/05/17 Influenza Type A (PCR) - Final, Complete Not Detected 02/05/17 Influenza Type B (PCR) - Final, Complete Not Detected 02/05/17 Human Metapneumovirus (PCR) (THONY) - Final, Complete Not Detected 02/05/17 Rhinovirus (PCR)(THONY) - Final, Complete Not Detected 02/05/17 Parainfluenza Virus Type 1 (PCR) - Final, Complete Not Detected 02/05/17 Parainfluenza Virus Type 2 (PCR) - Final, Complete Not Detected 02/05/17 Parainfluenza Virus Type 3 (PCR) - Final, Complete Not Detected 02/05/17 Parainfluenza Virus Type 4 (NAAT) - Final, Complete Not Detected 02/05/17 Respiratory Syncytial Virus (PCR)KY - Final, Complete Not Detected 02/05/17 Chlamydia pneumoniae (PCR) - Final, Complete Not Detected 02/05/17 Mycoplasma pneumoniae DNA Detection - Final, Complete 02/05/17 Urine Culture - Preliminary, Resulted Insufficient growth, culture is reinc... Result Diagram: 02/04/17 1800 02/04/17 1800 X-Rays, CTs and MRIs CT ANGIO CHEST PULMONARY EMBOLISM 02/04 IMPRESSION: 1. No pulmonary embolus. 2. No acute lung opacities. 3. Atherosclerosis including dense atherosclerotic calcifications in the coronary vasculature. Dictated by: Tova Clark MD, PhD on 02/04/2017 at 20:54 Approved by: Tova Clark MD, PhD on 02/04/2017 at 20:58 Assessment & Plan Ms. Sandoval is an extremely pleasant 71-year-old woman with the unfortunate history of unresectable rectal cancer with invasion of the uterus, vaginal wall , and possibly the posterior bladder wall, and recent initiation of FOLFOX therapy with first dose given in 01/29/2017, that presented to the emergency department via EMS for a one-week history of progressive weakness, dehydration, and dizziness, and a 1 day history of syncope and fever. She is admitted for evaluation and treatment of her presenting symptoms. Hospital day 1 1. Syncope, acute, present on admission. Under evaluation - Patient reports one-week history of increased fatigue and dizziness; report of syncopal event 1 day of admission - DDx: Extreme fatigue, dehydration, underlying infection, effects of chemotherapy, dysrhythmias, electrolyte abnormalities, thyroid dysfunction - Telemetry monitoring - NS 100 - Orthostatics checks 2 Fever, acute, present on admission. Resolved - Due to the single temp of 101, fever in a neutropenic patient protocol initiated, although WBC 4.3 - Precautions in place - Patient is considered low risk at this time secondary to WBC, unremarkable LFTs, normal creatinine, no evidence of IV site or Port-A-Cath place infection, no evidence of abdominal pain - Meropenem 2g IV x1 given; will need authorization from ID if abx needs to be continued based on sx/labs - No need for further antibiotics coverage unless patient spikes a fever again 3 Elevated d-dimer, chronicity unknown, present on admission. Presumed stable - On admit: D-dimer 9.61 - CTA completed on admission negative for pulmonary embolism - Elevation likely secondary to ongoing malignancy - Lovenox therapy for DVT prophylaxis 4 Muscle spasms, acute, present on admission. Active - Patient states muscle spasms have increased over the recent week, she attributed this to chemotherapy - DDx: Electrolyte imbalances secondary to dehydration, chemotherapy, fatigue, prolonged bedrest - Monitor electrolytes and replete as needed - Patient reports home Rx: Baclofen, continued - Patient stated fentanyl in ED was also effective; continued - Physical therapy assessment requested 5 Rectal cancer, locally invasive, chronic. Presumed stable - Followed by Dr. Dominguez - FOLFOX, first dose 01/29/2017 - Oncology consult order placed in [facility] to youth development professional oncologist; please contact team with verbal report - Neutropenic cautions in place: Handwashing, masks or any persons entering the room with URI symptoms Goals of care - Patient would like full resuscitation at this time for an emergent event - Again, her malignancy is a new diagnosis for her, and she admits that she needs to give the long-term options good thought - She is aware she should complete advanced directives; consider social service assistant or palliative consultation to assist with this PRN: Fever/pain/bowel/nausea DVT: Lovenox Diet: General GI: Not indicated CODE STATUS: Full code Patient is admitted under observation status with expected length of stay less than 2 midnights due to severity of presenting symptoms, risk of adverse event, and complexity of treatment plan. GI Prophylaxis: Not indicated VTE Prophylaxis: Sub-Q Enoxaparin VTE Mechanical Devices: Intermittant Pneumatic CD Resuscitation Status: CPR: Attempt Resuscitation Miguelito Marcus MD Feb 05, 2017 06:44
--- NOTE | 2017-02-05 16:15 | NUR ---
Bowel Movement Patient reported last BM 2 days ago and stated stool found in brief/pad was leakage from anal mass, but during brief change after patient used the bedpan, it appeared to be a moderate amount of stool in the bried, which was counted as 1 BM in I&O's.
[2017-02-06] VITALS (9 sets, daily range): BP systolic 114–154; BP diastolic 66–82; PULSE 69–82; RESP 16–20; O2SAT 94–96
[2017-02-06] MEDS: 0.9% Sodium Chloride 1,000 ML IV SCH ×2 (05:02→16:39)
[2017-02-06] MEDS: fentaNYL-PF 50 mCg/mL 2 mL Inj IVPUSH PRN ×3 (07:11→12:47)
--- NOTE | 2017-02-06 07:49 | NUR ---
Pain Pt reported pain as mostly tolerable during shift if pt did not move. Pt requested to use BSC instead of bedpan. Pt was premedicated with 50 mcg of Fentanyl with good effect for movement.
--- NOTE | 2017-02-06 09:25 | NUR ---
Social Work-initial assessment: Data:See initial assessment. Pt is a 71 y/o female who was admitted on 02/04/17 for Syncope per H&P. Per H&P pt has rectal cancer and Oncology SW is following. Pt's insurance is [employer] [facility] and PCP is Keiko Roy MD. EMR Reviewed. Pt's readmission score is 5-high risk. SW met with pt to discuss discharge planning, SW role explained. Pt is alert and oriented x3. Pt resides at home alone in a single level home with 4 steps to enter where pt remains independent with basic ADLs. Pt uses no DME at baseline and drives POV. Pt has no HH or SNF history. Pt has not completed DPOA/ advanced directive and SW provided info to review and complete. Pt has no local intermodal truck driver care or [facility] benefits. PT is recommending SNF and SW discussed this with the pt who declined. Pt stated she will have help from her son and a friend at home with ADLs. SW offered HH for nursing and PT as pt will be unable to drive for foreseeable future. Pt accepted and has no provider preference. SW to check HH rotating calendar and make referral for PT/RN. Pt's family to provide transport home at discharge. SW provided phone number and plan on white board in room. SW will continue to follow. Assessment:Pt who resides at home alone and would benefit from SNF. Plan:Pt to likely discharge home via POV with HH and assistance from family. PT recommending SNF, pt declines. SW will make HH referral per rotating calendar, and continue to follow. CHARLA Welsh Addendum: 02/06/17 at 1059 by DIANA REAVES SS Amended: Links added. Addendum: 02/06/17 at 1215 by DIANA MILLER FELIX contacted Tracy MONTOYA per rotating calendar. Gave access. Face to face in folder. CHARLA Welsh
[2017-02-06 09:29] LABS: BASOPHILS % (AUTO) 0.2 % (0-3); MONOCYTES % (AUTO) 2.8 % (4-12); Mean Corpuscular Hemoglobin 29.8 pg (27.0-35.0); Mean Corpuscular Volume 91.8 fL (81-100); NEUTROPHILS % (AUTO) 78.9 % (40-74); Platelet Count 262 bil/L (150-400)
--- NOTE | 2017-02-06 18:14 | NUR ---
[facility] signed
[2017-02-06] MEDS: Ondansetron 2 mg/mL 2 mL Inj IVPUSH PRN (20:24)
--- NOTE | 2017-02-06 23:02 | PCM.PNMED ---
Subjective Date of Service Feb 06, 2017 Subjective Patient seen and examined. No fever or chills overnight. Back pain persistent but better control with current pain medications to the point that she was able to sit up in bed. Worked with Physical therapy yesterday but limited. Exam Vital Signs Vital Sign - Last Date Time Temp Pulse Resp B/P Pulse Ox O2 Delivery O2 Flow Rate FiO2 02/06/17 21:59 37.3 74 18 143/80 94 Room Air Intake and Output 02/05/17 02/05/17 02/06/17 Cumulative From/Thru 15:00 23:00 07:00 02/04/17 17:22 - 02/06/17 06:02 Intake Total 1617 ml 1287 ml 3164 ml Output Total 350 ml 650 ml Balance 1617 ml 937 ml 2514 ml Intake Oral 720 ml 200 ml 1040 ml IV Total 897 ml 1087 ml 2124 ml Output Urine Total 350 ml 650 ml # Voids 3 3 # Bowel Movements 1 1 2 Exam General: Alert, Oriented X3, Cooperative, No acute Distress Eyes: PERRLA, Scleral Anicteric Mouth: Mouth Normal, Mucous Membranes dry Neck: Supple, no Thyromegaly, trachea central. Chest & Lungs: Clear to auscultation & percussion, No adventitious breath sounds, no crackles, no wheeze Cardiovascular: Normal S1, Normal S2, No Murmurs/Rubs/Gallops, Regular Rate/ Rhythm, (No JVD, no peripheral edema) Pulses: Radial (present and equal), Dorsalis Pedi (present and equal) Abdomen: Soft, Non-tender, Non-distended, Normoactive bowel tones. Musculoskeletal: Unremarkable. Normal range of motion, no swollen or erythematous joints Extremities: No edema, no cyanosis, no clubbing. Skin: No rashes. Warm and dry, no erythematous areas Neurological: Grossly neurologically intact, Normal Speech, Sensation Intact Lymphatic: Lymph nodes Cervical and Axillary not palpable. IVs and Medications Medications Reviewed: Medications were reviewed in detail Lab and Diagnostics Laboratory Tests Test 02/06/17 09:00 White Blood Count 4.3th/mm3 (3.8-10.1) Red Blood Count 3.05mil/mm3 (3.90-5.20) Hemoglobin 9.1g/dL (12.0-15.6) Hematocrit 28.0% (35.0-46.0) Mean Corpuscular Volume 91.8fL (81-100) Mean Corpuscular Hemoglobin 29.8pg (27.0-35.0) Mean Corpuscular Hemoglobin Concent 32.5% (32.0-37.0) Red Cell Distribution Width 12.9% (12.3-15.4) Platelet Count 262bil/L (150-400) Neutrophils (%) (Auto) 78.9% (40-74) Lymphocytes (%) (Auto) 13.6% (14-46) Monocytes (%) (Auto) 2.8% (4-12) Eosinophils (%) (Auto) 4.0% (0-5) Basophils (%) (Auto) 0.2% (0-3) Sodium Level 145mEq/L (134-144) Potassium Level 3.4mEq/L (3.5-5.2) Chloride Level 107mEq/L (97-108) Carbon Dioxide Level 24mmol/L (18-29) Blood Urea Nitrogen 8mg/dL (8-27) Creatinine 0.65mg/dL (0.57-1.00) Estimat Glomerular Filtration Rate 128mL/min (>59) Glucose Level 113mg/dL (60-99) Calcium Level 8.9mg/dL (8.5-10.1) Microbiology 02/04/17 Blood Culture - Preliminary, Resulted No growth at 2 days; culture examined... 02/05/17 Influenza Screen - Final, Complete 02/05/17 Adenovirus DNA (PCR) - Final, Complete Not Detected 02/05/17 Coronavirus 229E PCR - Final, Complete Not Detected 02/05/17 Coronavirus HKU1 PCR - Final, Complete Not Detected 02/05/17 Coronavirus NL63 PCR - Final, Complete Not Detected 02/05/17 Coronavirus OC43 PCR - Final, Complete Not Detected 02/05/17 Influenza Type A (PCR) - Final, Complete Not Detected 02/05/17 Influenza Type B (PCR) - Final, Complete Not Detected 02/05/17 Human Metapneumovirus (PCR) (THONY) - Final, Complete Not Detected 02/05/17 Rhinovirus (PCR)(THONY) - Final, Complete Not Detected 02/05/17 Parainfluenza Virus Type 1 (PCR) - Final, Complete Not Detected 02/05/17 Parainfluenza Virus Type 2 (PCR) - Final, Complete Not Detected 02/05/17 Parainfluenza Virus Type 3 (PCR) - Final, Complete Not Detected 02/05/17 Parainfluenza Virus Type 4 (NAAT) - Final, Complete Not Detected 02/05/17 Respiratory Syncytial Virus (PCR)CO - Final, Complete Not Detected 02/05/17 Chlamydia pneumoniae (PCR) - Final, Complete Not Detected 02/05/17 Mycoplasma pneumoniae DNA Detection - Final, Complete 02/05/17 Urine Culture - Preliminary, Resulted Result Diagram: 02/06/17 0900 02/06/17 0900 X-Rays, CTs and MRIs CT ANGIO CHEST PULMONARY EMBOLISM 02/04 IMPRESSION: 1. No pulmonary embolus. 2. No acute lung opacities. 3. Atherosclerosis including dense atherosclerotic calcifications in the coronary vasculature. Dictated by: Tova Clark MD, PhD on 02/04/2017 at 20:54 Approved by: Tova Clark MD, PhD on 02/04/2017 at 20:58 Assessment & Plan Ms. Sandoval is an extremely pleasant 71-year-old woman with the unfortunate history of unresectable rectal cancer with invasion of the uterus, vaginal wall , and possibly the posterior bladder wall, and recent initiation of FOLFOX therapy with first dose given in 01/29/2017, that presented to the emergency department via EMS for a one-week history of progressive weakness, dehydration, and dizziness, and a 1 day history of syncope and fever. She is admitted for evaluation and treatment of her presenting symptoms. Hospital day 2 1 Acute on Chronic back pain with Muscle spasms, acute, present on admission. Improving - Patient states muscle spasms have increased over the recent week, she attributed this to chemotherapy - consider CT to rule out metastasis as a cause if pain persists - Baclofen continued - Patient stated fentanyl Iv continued - Dilaudid PO added to titrate off Fentanyl - Physical therapy continued 2 Syncope, acute, due to Orthostatic hypotension. present on admission. Persistent - Telemetry reviewed showed no arrhythmia - NS 100 @ 100 cc/hr - Orthostatics checks continued 3 Fever, acute, present on admission. Resolved - Precautions in place, likely discontinued tomorrow - Meropenem 2g IV x1 given on admission - No need for further antibiotics coverage 4 Elevated d-dimer, chronicity unknown, present on admission. Presumed stable - On admit: D-dimer 9.61 - CTA completed on admission negative for pulmonary embolism - Elevation likely secondary to ongoing malignancy - Lovenox therapy for DVT prophylaxis 5 Rectal cancer, locally invasive, chronic. Presumed stable - Followed by Dr. Dominguez - SAURABH, first dose 01/29/2017 PRN: Fever/pain/bowel/nausea DVT: Lovenox Diet: General GI: Not indicated CODE STATUS: Full code Patient admitted under inpatient status with expected length of stay > 2 midnights for severity of present symptoms, complexities of treatment plan and risk for adverse event Meeting inpatient criteria today and admission status changes to inpatient . GI Prophylaxis: Not indicated VTE Prophylaxis: Sub-Q Enoxaparin VTE Mechanical Devices: Intermittant Pneumatic CD Resuscitation Status: CPR: Attempt Resuscitation Miguelito Marcus MD Feb 06, 2017 23:02
[2017-02-07] VITALS (12 sets, daily range): BP systolic 107–173; BP diastolic 56–85; PULSE 68–91; RESP 17–20; O2SAT 95–97
[2017-02-07] MEDS: Ondansetron 2 mg/mL 2 mL Inj IVPUSH PRN (01:52)
--- NOTE | 2017-02-07 02:00 | NUR ---
GI Pt has had nausea for the second time carolight. First time was into a waste basket and did not measure around 2019. The second episode occurred around 0150 and was 200 mL. Both times it was clear mixed with yellow bile. Addendum: 02/07/17 at 0238 by WOJCIECH VERA RN Pt still feeling nauseated. Pt requesting alternate anti-nausea medication. MD lee.
[2017-02-07] MEDS: 0.9% Sodium Chloride 1,000 ML IV SCH ×2 (03:18→13:55)
--- NOTE | 2017-02-07 08:25 | NUR ---
[facility] signed by CHARLA Carrillo
[2017-02-07] MEDS: fentaNYL-PF 50 mCg/mL 2 mL Inj IVPUSH PRN (08:34)
--- NOTE | 2017-02-07 13:37 | PCM.PNMED ---
Subjective Date of Service Feb 07, 2017 Subjective Patient seen and examined. Has several episodes of nausea and bilious vomiting overnight. Denies any hematemesis. Exam Vital Signs Vital Sign - Last Date Time Temp Pulse Resp B/P Pulse Ox O2 Delivery O2 Flow Rate FiO2 02/07/17 05:10 80 02/07/17 03:16 156/85 02/07/17 02:31 37.1 17 96 Room Air Intake and Output 02/06/17 02/06/17 02/07/17 Cumulative From/Thru 15:00 23:00 07:00 02/04/17 17:22 - 02/07/17 05:56 Intake Total 1175 ml 1610 ml 5949 ml Output Total 500 ml 600 ml 1750 ml Balance 675 ml 1010 ml 4199 ml Intake Oral 180 ml 500 ml 1720 ml IV Total 995 ml 1110 ml 4229 ml Output Urine Total 500 ml 600 ml 1750 ml # Voids 2 5 # Bowel Movements 2 Exam General: Alert, Oriented X3, Cooperative, No acute Distress Eyes: PERRLA, Scleral Anicteric Mouth: Mouth Normal, Mucous Membranes dry Neck: Supple, no Thyromegaly, trachea central. Chest & Lungs: Clear to auscultation & percussion, No adventitious breath sounds, no crackles, no wheeze Cardiovascular: Normal S1, Normal S2, No Murmurs/Rubs/Gallops, Regular Rate/ Rhythm, (No JVD, no peripheral edema) Pulses: Radial (present and equal), Dorsalis Pedi (present and equal) Abdomen: Soft, Non-tender, Non-distended, Normoactive bowel tones. Musculoskeletal: Unremarkable. Normal range of motion, no swollen or erythematous joints Extremities: No edema, no cyanosis, no clubbing. Skin: No rashes. Warm and dry, no erythematous areas Neurological: Grossly neurologically intact, Normal Speech, Sensation Intact Lymphatic: Lymph nodes Cervical and Axillary not palpable. IVs and Medications Medications Reviewed: Medications were reviewed in detail Lab and Diagnostics Result Diagram: 02/06/17 0900 02/06/17 0900 X-Rays, CTs and MRIs CT ANGIO CHEST PULMONARY EMBOLISM 02/04 IMPRESSION: 1. No pulmonary embolus. 2. No acute lung opacities. 3. Atherosclerosis including dense atherosclerotic calcifications in the coronary vasculature. Dictated by: Tova Clark MD, PhD on 02/04/2017 at 20:54 Approved by: Tova Clark MD, PhD on 02/04/2017 at 20:58 Assessment & Plan Ms. Sandoval is an extremely pleasant 71-year-old woman with the unfortunate history of unresectable rectal cancer with invasion of the uterus, vaginal wall , and possibly the posterior bladder wall, and recent initiation of FOLFOX therapy with first dose given in 01/29/2017, that presented to the emergency department via EMS for a one-week history of progressive weakness, dehydration, and dizziness 1 Acute on Chronic back pain with Muscle spasms, acute, present on admission. Improving - Patient states muscle spasms have increased over the recent week, she attributed this to chemotherapy - consider CT to rule out metastasis as a cause if pain persists - Baclofen and fentanyl Iv continued - Dilaudid discontinued as this was causing nausea and vomiting - Fentanyl patch started, plan to stop Fentanyl IV in a few hours when Fentanyl patch takes effect - Physical therapy recommending SNF but patient refuse - Plan Home health services, son and friend will be with patient this week 2 Syncope, acute, due to Orthostatic hypotension. present on admission. Persistent but improving - Telemetry reviewed showed no arrhythmia - continue NS @ 100 cc/hr - Orthostatics checks continued 3 Fever, acute, present on admission. Resolved - Precautions in place, likely discontinued tomorrow - Meropenem 2g IV x1 given on admission - No need for further antibiotics coverage 4 Elevated d-dimer, chronicity unknown, present on admission. - CTA completed on admission negative for pulmonary embolism - Elevation likely secondary to ongoing malignancy - Lovenox therapy for DVT prophylaxis 5 Rectal cancer, locally invasive, chronic. Presumed stable - Followed by Dr. Dominguez - FOLFOX, first dose 01/29/2017 PRN: Fever/pain/bowel/nausea DVT: Lovenox Diet: General GI: Not indicated CODE STATUS: Full code Patient admitted under inpatient status with expected length of stay > 2 midnights for severity of present symptoms, complexities of treatment plan and risk for adverse event Meeting inpatient criteria today and admission status changes to inpatient Anticipate discharge tomorrow . GI Prophylaxis: Not indicated VTE Prophylaxis: Sub-Q Enoxaparin VTE Mechanical Devices: Intermittant Pneumatic CD Resuscitation Status: CPR: Attempt Resuscitation Miguelito Marcus MD Feb 07, 2017 07:33
--- NOTE | 2017-02-07 14:14 | NUR ---
SW - Readiness for Discharge Data: Pt is on day 3 of hospitalization for Syncope per H&P. EMR reviewed. Per morning rounds pt is likely to discharge tomorrow. PT has assessed pt and recommends SNF but pt declines, states her son and a friend swill be assisting her full-time at home. Pt is agreeable to . SW sent referral to [facility] . Access given and signed Face to face is in folder. SW contacted [facility] to update them on likely discharge tomorrow. Pt likely to discharge home tomorrow via son. No further needs assessed at this time. SW will continue to follow. Assessment: Pt who would benefit for and is declining SNF Plan: Pt to discharge home via POV with [facility] RN/PT. Access given and signed Face to face is in folder. No further needs assessed at this time. SW will continue to follow. CHARLA Welsh
--- NOTE | 2017-02-07 17:36 | NUR ---
Orthostatic BP Patient ortho's positive. Lying 137/56, sitting 146/72, standing 107/58. Patient reports dizziness upon standing. Hospitalist notified, and is continuing IV fluids. Continue ortho's QAM.
[2017-02-08] MEDS ORDERED: fentaNYL-PF 50 mCg/mL 2 mL Inj IVPUSH ONE (01:35)
--- NOTE | 2017-02-08 05:18 | NUR ---
Pain Pt reported increasing pain, tylenol prn ineffective. Paged NOC hospitalist and got one time fentanyl dose IV after which the patient was able to sleep. Pt has otherwise been improving, ambulating w/o assistance to BRP w/ walker.
[2017-02-08 06:11] VITALS: BP 166/82; PULSE 66; O2SAT 99
[2017-02-08 06:18] LABS: Mean Corpuscular Hemoglobin 29.4 pg (27.0-35.0); Mean Corpuscular Volume 91.1 fL (81-100)
[2017-02-08] MEDS ORDERED: Potassium Chloride Inj 20 MEQ in Dextrose 5% 250 ML IV ONE (07:15)
[2017-02-08] MEDS ORDERED: Potassium Chloride 20 mEq/15 mL 15mL Oral Soln PO ONE (07:20)
[2017-02-08 08:27] VITALS: BP 170/81; PULSE 71; RESP 20; O2SAT 95
[2017-02-08 08:31] VITALS: BP 175/81; PULSE 72
[2017-02-08 08:34] VITALS: BP 168/81; PULSE 83
[2017-02-08] MEDS ORDERED: HYDROcodone-APAP 10-325 mg PO PRN (08:55)
[2017-02-08] MEDS ORDERED: Ondansetron 8 mg ODT Tablet PO PRN (08:55)
[2017-02-08] MEDS ORDERED: HYDROcodone-APAP 5-325 mg Tablet PO PRN ×2 (08:55→09:59)
--- NOTE | 2017-02-08 08:59 | PCM.DIMED ---
Discharge Instructions Date of Service February 08, 2017 Dates of Hospitalization Feb 04, 2017 at 21:54 Discharge Diagnosis Discharge Diagnosis Back spasm after fall, Colon Cancer currently on chemo Diet No restrictions Activity Limited until seen by PCP Call your provider Fever or Chills, Shortness of breath, Bleeding, Chest pain, Vomitting, Excessive diarrhea, Weakness (unilateral), Other Patient Instructions Follow-up plan Please set up out patient PT/OT for 3 weeks F/U with PCP in ten days F/U with Dr. Dominguez on as prev scheduled Irma Benz DO February 08, 2017 08:59
[2017-02-08] MEDS ORDERED: SENN-133 PO ×2 (09:03→09:10)
[2017-02-08] MEDS ORDERED: HYDR-4003 PO (09:03)
[2017-02-08] MEDS ORDERED: LIDO700A6 TOPICAL (09:03)
[2017-02-08] MEDS ORDERED: Fentanyl TOPICAL (09:03)
[2017-02-08] MEDS ORDERED: HYDR-3740 PO (09:03)
--- NOTE | 2017-02-08 09:18 | PCM.DC.MED ---
Discharge Summary Date of Service February 08, 2017 Dates of Hospitalization Date of Hospital Admission Feb 04, 2017 at 21:54 Date of Discharge: February 08, 2017 Providers: Admitting Physician: Lucia Castillo DO Primary Care Physician: Keiko Roy MD Attending Physician: Lucia Castillo DO Diagnosis at Time of Discharge Diagnosis at Time of Discharge Back spasm after fall, Colon Cancer currently on chemo, hypernatremia, hypokalemia, syncope due to dehydration and anemia Procedures XRay, CTs & MRIs CT ANGIO CHEST PULMONARY EMBOLISM 02/04 IMPRESSION: 1. No pulmonary embolus. 2. No acute lung opacities. 3. Atherosclerosis including dense atherosclerotic calcifications in the coronary vasculature. Dictated by: Tova Clark MD, PhD on 02/04/2017 at 20:54 Approved by: Tova Clark MD, PhD on 02/04/2017 at 20:58 Brief History Ms. Sandoval is an extremely pleasant 71-year-old woman with the unfortunate history of unresectable rectal cancer with invasion of the uterus, vaginal wall , and possibly the posterior bladder wall, and recent initiation of FOLFOX therapy with first dose given in 01/29/2017, that presented to the emergency department via EMS for a one-week history of progressive weakness, dehydration, and dizziness, and a 1 day history of syncope and fever. She is admitted for evaluation and treatment of her presenting symptoms. Hospital day 1 Ms. Sandoval that she has felt relatively well over the recent months, with the exception of near syncopal events earlier this month prior to, and leading to, her diagnosis of cancer, and also until last week after her first chemotherapy session. She notes that prior to this recent diagnosis of cancer, she describes herself as fairly healthy with no underlying medical conditions. Her first FOLFOX treatment was last week, and she noted that throughout the days leading up to this admission, she was experiencing a significantly decreased appetite, dehydration, and generalized malaise with fatigue. She states she was aware and attempted to stay well hydrated, but she was completely exhausted. She admits to poor by mouth intake and days leading to admission. She notes that over the recent week, she has been intermittently dizzy, with near syncopal events, but it was not until the day of admission, that she noticed that she started to black out and "see stars." At that time, she states she was resting on the toilet, and denies any traumatic falls or head strikes. She has not participated in any rigorous activity over the recent week , and has largely been bed/couch bound secondary to her profound fatigue and weakness. She denies any fever, chills, vomiting, diarrhea, constipation, dysuria, hematuria. She states she is aware that her temperature was elevated, but she insists she did not feel feverish. She is followed by Dr. Dominguez of [facility] oncology, and first FOLFOX treatment was . Notes indicate that she has a T4 N3 rectal cancer, which is unresectable with invasion to the uterus, vaginal wall, and possibly the posterior bladder wall. The plan was to receive FOLFOX therapy every 2 weeks for 2 months, obtain repeat imaging, and at that time, decide whether to add radiation. This is a new diagnosis for the patient, diagnosed in January of this year. In the ED, T 37.4, pulse 86, respiratory rate 14, blood pressure 158/77, 99% on room air; initial labs revealed WBC 4.3, hemoglobin 10, platelets 273; potassium 3.0, lactic acid 1.1, pro calcitonin 0.09; troponin negative; d-dimer elevated at 9.61. Multiple imaging studies were obtained, including XR thoracic spine which revealed multilevel degenerative disc disease without evidence of fracture or acute osseous lesions; lumbar x-ray revealed mild anterior L1 compression deformity which was stable compared to previous imaging , in addition to multilevel degenerative disease and facet arthropathy; chest x- ray did not reveal any acute cardiopulmonary disease; CTA was negative for evidence of pulmonary emboli, and no acute lung opacities were noted, there was atelectasis noted in the dependent portions of the lung with parenchymal scarring and a calcified granuloma within the left lung base. Blood cultures were obtained. Patient was transferred to and seen in [facility] in stable condition. Hospital Course Ms. Sandoval is an extremely pleasant 71-year-old woman with the unfortunate history of unresectable rectal cancer with invasion of the uterus, vaginal wall , and possibly the posterior bladder wall, and recent initiation of FOLFOX therapy with first dose given in 01/29/2017, that presented to the emergency department via EMS for a one-week history of progressive weakness, dehydration, and dizziness 1 Acute on Chronic back pain with Muscle spasms, acute, present on admission. Improving - Patient states muscle spasms have increased over the recent week, she attributed this to chemotherapy - consider CT to rule out metastasis as a cause if pain persists - Baclofen and fentanyl Iv continued - Dilaudid discontinued as this was causing nausea and vomiting - Fentanyl patch started, IV fentanyl for breakthrough is ordered - Physical therapy recommending SNF but patient refused - Plan Home health services are offered to the patient patient declined, son and friend will be with patient this week -- Patient refuses home health, says her son will be with ehr and then a friend. -- She is given pain meds and instructions for breakthrough pain. -- Senna for constipation while on pain meds -- F/U with PCP in 10 days, BMP prior to follow-up with PCP -- Outpatient PT/OT for 3 weeks -- F/U with [facility] for OMT -- Performed muscle energy on thoracic spine patient tolerated well -- She is asked to continue baclofen prescribed by Dr. Dominguez 2 Syncope, acute, due to Orthostatic hypotension . present on admission. Persistent but improving - Telemetry reviewed showed no arrhythmia - continue NS @ 100 cc/hr - Orthostatics negative 02/08 in the room. Doing well 3 Fever, acute, present on admission. Resolved - Precautions in place, likely discontinued tomorrow - Meropenem 2g IV x1 given on admission - No need for further antibiotics coverage 4 Elevated d-dimer, chronicity unknown, present on admission. -- Not an accurate test in elderly cancer patient. - CTA completed on admission negative for pulmonary embolism - Elevation likely secondary to ongoing malignancy - Lovenox therapy for DVT prophylaxis 5 Rectal cancer, locally invasive, chronic. Presumed stable - Followed by Dr. Dominguez - FOLFOX, first dose 01/29/2017 6. Hypokalemia: Repleted with 20 meq PO and 20 meq IV, f/u lab at 3 PM: K=3.4, Was given 10 meq PO prior to d/c 7. Magnesium levels: WNL at the time of discharge 8. Hypernatremia : Change fluids to half-normal saline, follow-up lab at 3 PM showed 145 sodium. 9. Anemia: will add iron panel labs, we request that the PCP follows up on these.Will call in Iron supplement to her pharmacy. PRN: Fever/pain/bowel/nausea DVT: Lovenox Diet: General GI: Not indicated CODE STATUS: Full code Patient admitted under inpatient status with expected length of stay > 2 midnights for severity of present symptoms, complexities of treatment plan and risk for adverse event Meeting inpatient criteria today and admission status changes to inpatient Anticipate discharge tomorrow . Exam Vital Signs (Last) Date Time Temp Pulse Resp B/P Pulse Ox O2 Delivery O2 Flow Rate FiO2 02/08/17 08:34 83 168/81 02/08/17 08:27 36.5 20 95 Room Air Exam General: NAD, pleasant HEENT: Normocephalic, atraumatic Heart: RRR, no s3/s4 Lungs: CTA, no crackles or wheezes Abd: Soft, non-tender Psych: Neg for anxiety Neuro: No focal deficits MSK: Is able to move around, able to get up and go to bath room, tenderness over Right thoracic spine T10-T12 area, muscle spasm noted. She is able to rotate her trunk and side bend her trunk Test 02/04/17 18:00 02/04/17 19:10 02/05/17 00:35 02/05/17 06:45 D-Dimer 9.61mg/L FEU (<0.50) Troponin T < 0.010ug/L (0.0-0.011) Urine Color Yellow (YELLOW) Urine Appearance Slightly cloudy Urine pH 6.0 (5.0-8.0) Urine Specific [place] 1.040 (1.003-1.035) Urine Protein Negativemg/dL (NEG,TRACE) Urine Glucose (UA) Negativemg/dL (NEGATIVE) Urine Ketones 15mg/dL (NEGATIVE) Urine Occult Blood Large (NEGATIVE) Urine Nitrite Negative (NEGATIVE) Urine Bilirubin Negative (NEGATIVE) Urine Urobilinogen Normalmg/dL (NORMAL) Urine Leukocyte Esterase Small (NEGATIVE) Urine RBC 11-50/hpf (0-2) Urine WBC 6-10/hpf (0-5) Urine Epithelial Cells Many/hpf (NONE-MOD) Urine Crystals Amorphous urates (NONE Urine Bacteria None/hpf (NONE-FEW) Urine Hyaline Casts None/lpf (NONE) Urine Granular Casts None seen (NONE SEEN) Urine Waxy Casts None seen (NONE SEEN) Urine Red Blood Cell Casts None seen (NONE SEEN) Urine White Blood Cell Casts None seen (NONE SEEN) Urine Mucus None seen (None Seen) Urine Trichomonas None seen (NONE SEEN) Urine Yeast None (NONE SEEN) Urine Culture Reflexed Indicated Lactic Acid Level 0.5mmol/L (0.4-2.0) Phosphorus Level 2.5mg/dL (2.5-4.9) Procalcitonin 0.10ng/mL (0.00-0.08) Thyroid Stimulating Hormone (TSH) 9.090uIU/mL (0.450-4.500) Free Thyroxine 1.06ng/dL (0.82-1.77) Test 02/06/17 09:00 02/08/17 05:49 Neutrophils (%) (Auto) 78.9% (40-74) Lymphocytes (%) (Auto) 13.6% (14-46) Monocytes (%) (Auto) 2.8% (4-12) Eosinophils (%) (Auto) 4.0% (0-5) Basophils (%) (Auto) 0.2% (0-3) White Blood Count 2.9th/mm3 (3.8-10.1) Red Blood Count 2.82mil/mm3 (3.90-5.20) Hemoglobin 8.3g/dL (12.0-15.6) Hematocrit 25.7% (35.0-46.0) Mean Corpuscular Volume 91.1fL (81-100) Mean Corpuscular Hemoglobin 29.4pg (27.0-35.0) Mean Corpuscular Hemoglobin Concent 32.3% (32.0-37.0) Red Cell Distribution Width 12.8% (12.3-15.4) Platelet Count 225bil/L (150-400) Sodium Level 149mEq/L (134-144) Potassium Level 3.1mEq/L (3.5-5.2) Chloride Level 109mEq/L (97-108) Carbon Dioxide Level 26mmol/L (18-29) Blood Urea Nitrogen 7mg/dL (8-27) Creatinine 0.63mg/dL (0.57-1.00) Estimat Glomerular Filtration Rate 133mL/min (>59) Glucose Level 100mg/dL (60-99) Calcium Level 8.6mg/dL (8.5-10.1) Magnesium Level 1.6mg/dL (1.6-2.6) Total Bilirubin 0.3mg/dL (0.0-1.2) Aspartate Amino Transf (AST/SGOT) 15U/L (0-50) Alanine Aminotransferase (ALT/SGPT) 6U/L (0-32) Alkaline Phosphatase 59U/L (25-165) Total Protein 5.2g/dL (6.4-8.4) Albumin 3.1g/dL (3.4-5.0) Lipase 51U/L (13-60) Discharge Medications Discharge Medications ([Fentanyl]) 1 PATCH PATCH 3 PATCH TOPICAL Q3D Prescribed by: IRMA FERRER DO Baclofen (Baclofen) 20 Mg Tablet 20 MG PO TID (Reported) Cefuroxime Axetil (Cefuroxime) 250 Mg Tablet 250 MG PO BID Prescribed by: IRMA FERRER DO Lidocaine (Lidoderm) 700 Mg Adh..patch 1 PATCH TOPICAL DAILY Prescribed by: IRMA FERRER DO Mirtazapine (Mirtazapine) 15 Mg Tablet 15 MG PO HS (Reported) Multivitamin (Multi Vitamin Daily) 1 Each Tablet 1 EACH PO DAILY (Reported) As needed Acetaminophen (Acetaminophen) 325 Mg Tablet 325 MG PO Q4H PRN PRN For Fever ( Reported) Hydrocodone-Acetaminophen 10-325 mg (Hydrocodone-Acetaminophen 10-325 mg) 1 Each Tablet 1 TABLET PO Q4H PRN PRN For Severe Pain Prescribed by: IRMA FERRER DO Hydrocodone-Acetaminophen 5-325 mg (Hydrocodone-Acetaminophen 5-325 mg) 1 Each Tablet 1 TABLET PO Q4 PRN PRN For moderate pain Prescribed by: IRMA FERRER DO Ondansetron (Ondansetron) 8 Mg Tablet 8 MG PO Q8H PRN PRN For Nausea (Reported) Promethazine (Promethazine) 12.5 Mg Tablet 12.5 MG PO Q4H PRN PRN For Nausea ( Reported) Sennosides (Senna) 8.6 Mg Tablet 8.6 MG PO BID PRN PRN For Constipation Prescribed by: IRMA FERRER DO Followup Plan Follow-up plan Please set up out patient PT/OT for 3 weeks F/U with PCP in ten days F/U with Dr. Dominguez on as prev scheduled Discharge Diet: No restrictions Discharge Activity: Limited until seen by PCP Irma Ferrer DO February 08, 2017 09:16
[2017-02-08 09:19] VITALS: PULSE 70
[2017-02-08] MEDS ORDERED: Lidocaine Topical 5% Patch TOPICAL SCH (09:59)
[2017-02-08 12:03] VITALS: BP 144/75; PULSE 77; RESP 16; O2SAT 97
[2017-02-08] MEDS ORDERED: CEFU250T82 PO (13:29)
--- NOTE | 2017-02-08 15:30 | NUR ---
Social Work: Initial Assessment Data & Assessment: SW met with patient at bedside to discuss discharge. Patient is in agreement with discharging home with [facility] , but the patient only wants PT and not nursing HH. SW faxed HH face-to face to [facility] and called [facility] and notified them of the patient's discharge today. Patient will discharge home via POV. SW will continue to follow. Plan: Patient will discharge home with [facility] . Patient will discharge home via POV. SW will continue to follow. Nelly Verma LMSW, HELAD[facility]
[2017-02-08] MEDS ORDERED: LORazepam 0.5 mg Tablet PO ONE (16:30)
--- NOTE | 2017-02-08 18:27 | NUR ---
Discharge note- Pain controlled with oral pain med and Lidocaine patch with good relief without nausea. Patient up to bathroom and ambulated in hallway with PT. Tolerated activity well without spasms or increased pain. Discharged to home with family and personal belongings.
[2017-02-08] MEDS ORDERED: FERR-83 PO (20:24)
[2017-02-08 21:06] LABS: Unsaturated Iron Binding 207.2 ug/dL
[2017-02-09 07:12] LABS: Vitamin B12 300 pg/mL (211-946)
[2017-02-09] MEDS ORDERED: Fentanyl TOPICAL (10:26)
[2017-03-25] MEDS ORDERED: LACT-38 PO (08:37)
== END 2017-02-08 17:50 | disposition home or self-care (01) | DRG 641 ==
LOC: SED 17:14 → EDBD 17:14 → OBSVTOIN 21:54 → MOC 21:54
PROVIDERS: ADMIT Internal Medicine; ATTEND Internal Medicine
DX: E86.0 Dehydration (principal); C20 Malignant neoplasm of rectum; M62.838 Other muscle spasm; I95.1 Orthostatic hypotension; D64.9 Anemia, unspecified; E87.6 Hypokalemia; Z88.0 Allergy status to penicillin; M51.36 Other intervertebral disc degeneration, lumbar region; T45.1X5A Adverse effect of antineoplastic and immunosuppressive drugs, initial encounter; E87.0 Hyperosmolality and hypernatremia